=== PATIENT | female | born 1970 | race African-American/Black ===

== ENCOUNTER 2021-03-04 07:32 | Outpatient (REF) | payer BC, SELFPAY ==
--- NOTE | ~2021-03-04 | MM_ITS ---
EXAMINATION: MM SCREENING DIGITAL BREAST TOMOSYNTHESIS, BILATERAL CLINICAL INFORMATION: Screening. Asymptomatic. The lifetime risk of breast cancer based on the Tyrer-Cuzick Model is 8%. COMPARISON: Mammography: 06/23/2019, 06/07/2018, 06/04/2017 TECHNIQUE: Digital breast tomosynthesis is performed in both the craniocaudal and mediolateral oblique views along with computer-aided detection (CAD). Synthesized 2D images are generated from the tomosynthesis. Additional exaggerated right CC view is provided. FINDINGS: There are scattered areas of fibroglandular density (ACR BI-RADS breast composition Category b). There are no significant masses, abnormal calcifications, or other abnormalities. The axilla and skin contours are unremarkable. No significant changes. MM/MM tomosynthesis screening BI IMPRESSION: No mammographic evidence of malignancy. ASSESSMENT: BI-RADS 1: Negative RECOMMENDATION: Routine annual mammography screening. This patient's information was entered into a reminder system with a target due date for their next mammogram.
--- NOTE | ~2021-03-04 | US_ITS ---
EXAMINATION: US THYROID CLINICAL INFORMATION: Nontoxic multinodular goiter. History of left thyroidectomy. COMPARISON: Thyroid ultrasound 03/23/2019. CT soft tissue neck 04/30/2016. TECHNIQUE: Linear transducer martínez-scale and color Doppler examination with attention to the region of the thyroid. FINDINGS: SIZE: Measurements of the solitary right lobe and nodules are given in sagittal, anteroposterior and transverse dimensions respectively. Right Thyroid Lobe: 5.9 x 2 x 3.6 cm, volume 22.2 mL. Previously 5 x 2.6 x 3.6 cm, volume 24.5 mL. Parenchyma: The gland echotexture is heterogeneous. Thyroid vascularity is increased. Left Thyroid Lobe: Surgically absent. Isthmus: 0.4 cm in maximum AP dimension. Previously 0.3 cm. Estimated total number of nodules greater than or equal to 1 cm: 4. Marketing Automation Analyst nodules are described as follows: 1. Location: Right upper pole. Size: 1.9 x 0.9 x 1.2 cm, volume 1.1 mL. Previously: Not measured. Nodule characteristics: Composition: Solid/almost completely solid (2). Echogenicity: Isoechoic (1). Shape: Not taller than wide (0). Margins: Ill-defined (0). Echogenic Foci: None (0). ACR TI-RADS total points: 3 ACR TI-RADS category: 3 2. Location: Right mid pole/lateral. Size: 2.8 x 1.8 x 2.2 cm, volume 5.8 mL. Previously: 2.7 x 1.9 x 2.1 cm, volume 5.6 mL. Nodule characteristics: Composition: Mixed cystic and solid (1). Echogenicity: Hypoechoic (2). Shape: Not taller than wide (0). Margins: Ill-defined (0). Echogenic Foci: None (0). ACR TI-RADS total points: 3 ACR TI-RADS category: 3 Significant change in size (>/= 20% in 2 dimensions and minimal increase of 2 mm or 50% or greater increase in volume): No Change in features: No Change in ACR TI-RADS risk category: No 3. Location: Right mid pole/medial. Size: 1.4 x 0.9 x 1.0 cm, volume 0.66 mL. Previously: 1.2 x 0.9 x 1.0 cm, volume 0.56 mL. Nodule characteristics: Composition: Solid (2). Echogenicity: Isoechoic (1). Shape: Not taller than wide (0). Margins: Smooth (0). Echogenic Foci: None (0). ACR TI-RADS total points: 3 ACR TI-RADS category: 3 Significant change in size (>/= 20% in 2 dimensions and minimal increase of 2 mm or 50% or greater increase in volume): No Change in features: No Change in ACR TI-RADS risk category: No 4. Location: Right lower pole. Size: 1.6 x 1.2 x 2.2 cm, volume 2.2 mL. Previously: 1.9 x 1.5 x 2.2 cm, volume 2.3 mL. Nodule characteristics: Composition: Mixed cystic and solid (1). Echogenicity: Hyperechoic (1). Shape: Not taller than wide (0). Margins: Cannot be determined (0). Echogenic Foci: None (0). ACR TI-RADS total points: 2 ACR TI-RADS category: 2 Significant change in size (>/= 20% in 2 dimensions and minimal increase of 2 mm or 50% or greater increase in volume): No Change in features: No Change in ACR TI-RADS risk category: No LEFT THYROIDECTOMY BED: No recurrent thyroid tissue or nodule seen. NODES: No lymphadenopathy is seen in the tissue surrounding the thyroid gland. US/US thyroid IMPRESSION: Enlarged heterogeneous right lobe. Newly appreciated nodule in the superior lobe. Otherwise right thyroid nodules that appear unchanged. ACR TI-RADS RECOMMENDATION REFERENCE: Ultrasound-guided fine-needle aspiration, followup ultrasound, no further follow up. * TR1 (0 point) and TR 2 (2 points): No FNA or follow up * TR3 (3 points): FNA if more than or equal to 2.5 cm in maximum dimension, followup ultrasound in 1, 3 and 5 years if 1.5 to 2.4 cm in maximum dimension. * TR4 (4-6 points): FNA if more than or equal to 1.5 cm in maximum dimension, followup ultrasound in 1, 2, 3 and 5 years if 1 to 1.4 cm in maximum dimension. * TR5 (more than or equal to 7 points): FNA if more than or equal to 1 cm in maximum dimension, followup ultrasound every year for 5 years if 0.5 to 0.9 cm in maximum dimension. * TR3, TR4 or TR5 nodules that are below the size threshold for follow up receive no follow up.
[2021-03-04 09:58] LABS: Alanine Aminotransferase 15 U/L (0-31); Albumin Level 4.2 g/dL (3.5-5.0); Alkaline Phosphatase 85 U/L (39-117); Anion Gap 12 (12-20); Aspartate Amino Transferase 18 U/L (5-31); Bilirubin Total 0.9 mg/dL (0.0-1.0); Blood Urea Nitrogen 13 mg/dL (9-16); Calcium 9.3 mg/dL (8.4-10.2); Carbon Dioxide 26 mmol/L (22-29); Chloride 108 mmol/L (96-108); Estimated Glomerular Filt Rate > 60; Glucose Fasting 89 mg/dL (60-99); Potassium 4.4 mmol/L (3.3-5.1); Sodium 142 mmol/L (135-145); Total Protein 7.1 g/dL (6.5-8.0)
[2021-03-04 10:21] LABS: Free T4 (Free Thyroxine) 0.98 ng/dL (0.71-1.85); Thyroid Stimulating Hormone 1.03 uIU/mL (0.32-4.0); Vitamin D 25-OH Total 30.2 ng/mL (>30)
[2021-03-09 13:37] LABS: IGF-1 (Somatomedin C) 232 ng/mL (50-317); IGF-1 Z Score (Female) 1.1 SD (-2.0 - +2.0)
== END 2021-03-04 07:33 | disposition home or self-care (01) ==
LOC: HO.MAMMO 07:32
PROVIDERS: Absent Provider Internal Medicine; PCP Internal Medicine; Visit Provider Internal Medicine
DX: Z12.31 Encounter for screening mammogram for malignant neoplasm of breast (principal); E55.9 Vitamin D deficiency, unspecified; E04.2 Nontoxic multinodular goiter; Z86.39 Personal history of other endocrine, nutritional and metabolic disease
CPT/HCPCS: 36415; 76536; 77063; 77067; 80053; 82306; 84305; 84439; 84443

== ENCOUNTER 2021-03-18 08:17 | Outpatient (REF) | payer BC, SELFPAY ==
[2021-03-18 09:28] LABS: MANUAL DIFF FLAG NO
[2021-03-18 09:33] LABS: Basophils Percent Auto 0.5 % (0-2); Eosinophils Absolute Auto 0.1 X10*3/uL (0.0-0.4); Eosinophils Percent Auto 2.2 % (0-4); Hematocrit 40.3 % (37-47); Hemoglobin 12.3 g/dl (12.0-16.0); Imm Gran Abs Auto 0.01 X10*3/uL (0.00-0.03); Imm Gran Pct Auto 0.2 % (0.0-0.4); Lymphocytes Absolute Auto 1.9 X10*3/uL (1.2-4.9); Lymphocytes Percent Auto 46.4 % (20-40); Mean Corpuscular HGB Conc 30.5 g/dl (31.0-35.0); Mean Corpuscular Hemoglobin 26.7 pg (27.0-33.0); Mean Corpuscular Volume 87.6 fL (80-98); Mean Platelet Volume 10.2 fL (9.4-12.3); Monocytes Absolute Auto 0.3 X10*3/uL (0.1-1.2); Monocytes Percent Auto 6.7 % (2-11); Neutrophils Absolute Auto 1.8 X10*3/uL (2.0-8.3); Platelet Count 239 X10*3/uL (160-400); Red Cell Distribution Width 12.7 % (11.0-16.0)
[2021-03-18 09:54] LABS: Glucose Urine UA NEG (NEG); Leukocyte Esterase Urine NEG (NEG); Nitrite Urine NEG (NEG); PH 6.5 (5.0-8.0); Urine Blood NEG (NEG); Urine Ketones NEG (NEG); Urine Protein NEG (NEG-TRACE)
[2021-03-18 09:56] LABS: Appearance Urine CLEAR; Color Urine YELLOW
[2021-03-18 10:04] LABS: Cholesterol 237 mg/dL; HDL Cholesterol 64 mg/dL; LDL Cholesterol Calculated 156 mg/dl; Triglycerides 87 mg/dL
[2021-03-20 22:41] LABS: HPV mRNA E6/E7 rflx Not Detected (Not Detected)
== END 2021-03-18 08:18 | disposition home or self-care (01) ==
LOC: HO.LAB 08:17
PROVIDERS: Obstetrics & Gynecology; PCP Internal Medicine; Visit Provider Internal Medicine
DX: Z01.419 Encounter for gynecological examination (general) (routine) without abnormal findings (principal); Z11.51 Encounter for screening for human papillomavirus (HPV); E78.00 Pure hypercholesterolemia, unspecified; I10 Essential (primary) hypertension
CPT/HCPCS: 36415; 80061; 81003; 85025; 87624; 88142

== ENCOUNTER 2022-01-02 09:46 | Outpatient (REF) | payer BC, SELFPAY ==
--- NOTE | ~2022-01-02 | MM_ITS ---
EXAMINATION: BONE DENSITOMETRY CLINICAL INDICATION: Osteopenia. COMPARISON: Previous BD dated 10/31/2019 and baseline BD dated 09/30/2017. TECHNIQUE: Using a [employer] DXA System (software version: 13.1) manufactured by [employer], dual-energy x-ray absorptiometry was performed of the lumbar spine and left hip. The images are of good technical quality. Summary results are attached. FINDINGS: AP SPINE L1-L4: Current: BMD 1.167 g/cm2, Z-score -0.5, T-score -0.1, normal, 3.3% increase from previous, 2.0% increase from baseline (<5% change is not significant). Prior: BMD 1.130 g/cm2. Baseline: BMD 1.144 g/cm2. LEFT FEMUR, NECK: Current: BMD 0.842 g/cm2, Z-score -1.6, T-score -1.4, osteopenia. Prior: BMD 0.897 g/cm2. Baseline: BMD 0.888 g/cm2. LEFT FEMUR, TOTAL: Current: BMD 0.792 g/cm2, Z-score -2.3, T-score -1.7, osteopenia, 7.9% decrease from previous, 4.3% decrease from baseline (<5% change is not significant). Prior: BMD 0.860 g/cm2. Baseline: BMD 0.828 g/cm2. IDENTIFIED RISK FACTORS: Low calcium intake. Secondary osteoporosis (early menopause). Osteoporosis. HISTORY OF FRACTURE: None listed. MEDICATIONS: Calcium supplement and/or multivitamin. Vitamin D. MM/XR DEXA axial skeleton IMPRESSION: 1. DIAGNOSIS: Osteopenia based on the lowest T-score value of -1.7 in the total femur applying World Health Organization criteria. 2. 10-YEAR FRACTURE RISK PREDICTION, FRAX: Major osteoporotic fracture (clinical spine, forearm, hip or shoulder) 2.6%. Hip fracture 0.2%. 3. Treatment Recommendations: NOF guidelines recommend consideration for treatment in postmenopausal women and men age 50 and older presenting with the following: -A hip or vertebral (clinical or morphometric) fracture. -T-score less than or equal to -2.5 at the femoral neck or spine after appropriate evaluation to exclude secondary causes. -Low bone mass at the hip or spine and a 10-year fracture probability by FRAX of greater than or equal to 3% for hip fracture or greater than or equal to 20% for major osteoporotic fracture based on the [place] adapted WHO algorithm. 4. Other Recommendations: All treatment decisions require clinical judgment and consideration of individual patient factors, including patient preferences, comorbidities, previous drug use, risk factors not captured in the FRAX model (e.g. frailty, falls, vitamin D deficiency, increased bone turnover, interval significant decline in bone density) and possible under or overestimation of fracture risk by FRAX. Additional medical evaluation for secondary cause of low bone mineral density may be appropriate. FUTURE SCAN RECOMMENDATION: People with diagnosed cases of osteoporosis or at high risk for fracture should have regular bone mineral density tests. For patients eligible for Medicare, routine testing is allowed once every 2 years. The testing frequency can be increased to one year for patients who have rapidly progressing disease, those who are receiving or discontinuing medical therapy to restore bone mass, or have additional risk factors.
== END 2022-01-02 09:47 | disposition home or self-care (01) ==
LOC: HO.MAMMO 09:46
PROVIDERS: PCP Internal Medicine; Visit Provider Internal Medicine
DX: Z13.820 Encounter for screening for osteoporosis (principal); M85.852 Other specified disorders of bone density and structure, left thigh; Z78.0 Asymptomatic menopausal state; Z79.899 Other long term (current) drug therapy
CPT/HCPCS: 77080

== ENCOUNTER 2022-03-05 07:11 | Outpatient (REF) | payer BC, SELFPAY ==
[2022-03-05 07:31] LABS: MANUAL DIFF FLAG NO
[2022-03-05 08:04] LABS: Basophils Percent Auto 0.7 % (0-2); Eosinophils Absolute Auto 0.1 X10*3/uL (0.0-0.4); Eosinophils Percent Auto 2.1 % (0-4); Hematocrit 38.7 % (37.0-47.0); Hemoglobin 11.9 g/dl (12.0-16.0); Imm Gran Abs Auto 0.01 X10*3/uL (0.00-0.03); Imm Gran Pct Auto 0.2 % (0.0-0.4); Lymphocytes Absolute Auto 2.1 X10*3/uL (1.2-4.9); Lymphocytes Percent Auto 48.9 % (20-40); Mean Corpuscular HGB Conc 30.7 g/dl (31.0-35.0); Mean Corpuscular Hemoglobin 26.7 pg (27.0-33.0); Mean Corpuscular Volume 86.8 fL (80.0-98.0); Monocytes Absolute Auto 0.3 X10*3/uL (0.1-1.2); Monocytes Percent Auto 7.6 % (2-11); Neutrophils Absolute Auto 1.8 x10*3/uL (2.0-8.3); Neutrophils Percent Auto 40.5 % (45-73); Platelet Count 228 X10*3/uL (160-400); Red Blood Count 4.46 X10*6/uL (4.20-5.50); Red Cell Distribution Width 12.6 % (11.0-16.0); White Blood Count 4.4 X10*3/uL (4.8-10.8)
[2022-03-05 08:07] LABS: Appearance Urine CLOUDY; Color Urine YELLOW; Glucose Urine UA NEG (NEG); Leukocyte Esterase Urine 3+ (NEG); Nitrite Urine POS (NEG); Specific Gravity - Urine 1.015 (1.005-1.025); UACC Culture Trigger YES; Urine Blood TRACE (NEG); Urine Ketones NEG (NEG); Urine Protein NEG (NEG-TRACE)
[2022-03-05 08:20] LABS: Squamous Epithelial Cell Urine 1+ /LPF; WBC Urine TNTC /HPF (0-4)
[2022-03-05 08:21] LABS: Bacteria Urine 2+ /LPF
[2022-03-05 08:43] LABS: Alanine Aminotransferase 20 U/L (0-31); Albumin Level 4.2 g/dL (3.5-5.0); Alkaline Phosphatase 75 U/L (39-117); Anion Gap 9 (12-20); Aspartate Amino Transferase 19 U/L (5-31); Blood Urea Nitrogen 12 mg/dL (9-16); Calcium 9.6 mg/dL (8.4-10.2); Carbon Dioxide 28 mmol/L (22-29); Chloride 106 mmol/L (96-108); Cholesterol 221 mg/dL; Estimated Glomerular Filt Rate > 60; Glucose Fasting 94 mg/dL (60-99); HDL Cholesterol 59 mg/dL; LDL Cholesterol Calculated 144 mg/dl; Potassium 4.1 mmol/L (3.3-5.1); Sodium 139 mmol/L (135-145); Triglycerides 92 mg/dL
[2022-03-05 09:04] LABS: Thyroid Stimulating Hormone 1.97 uIU/mL (0.32-4.0); Vitamin D 25-OH Total 27.6 ng/mL (>30)
== END 2022-03-05 07:12 | disposition home or self-care (01) ==
LOC: HO.LAB 07:11
PROVIDERS: PCP Internal Medicine; Visit Provider Internal Medicine
DX: Z00.00 Encounter for general adult medical examination without abnormal findings (principal); E78.00 Pure hypercholesterolemia, unspecified; E55.9 Vitamin D deficiency, unspecified; I10 Essential (primary) hypertension; E03.9 Hypothyroidism, unspecified
CPT/HCPCS: 36415; 80053; 80061; 81001; 81003; 82306; 84439; 84443; 85025; 87086; 87088; 87186

== ENCOUNTER 2022-03-23 07:43 | Outpatient (REF) | payer BC, SELFPAY ==
[2022-03-23 08:52] LABS: Appearance Urine CLEAR; Color Urine YELLOW; Glucose Urine UA NEG (NEG); Leukocyte Esterase Urine NEG (NEG); Nitrite Urine NEG (NEG); Urine Blood NEG (NEG); Urine Ketones NEG (NEG); Urine Protein NEG (NEG-TRACE)
== END 2022-03-23 07:44 | disposition home or self-care (01) ==
LOC: HO.LAB 07:43
PROVIDERS: PCP Internal Medicine; Visit Provider Internal Medicine
DX: Z01.419 Encounter for gynecological examination (general) (routine) without abnormal findings (principal); N39.0 Urinary tract infection, site not specified
CPT/HCPCS: 81003

== ENCOUNTER 2022-03-27 07:59 | Outpatient (REF) | payer BC, SELFPAY ==
--- NOTE | ~2022-03-27 | MM_ITS ---
EXAMINATION: MM SCREENING DIGITAL BREAST TOMOSYNTHESIS, BILATERAL CLINICAL INFORMATION: Screening. Asymptomatic. The lifetime risk of breast cancer based on the Tyrer-Cuzick Model is 8%. COMPARISON: Mammography: 03/04/2021, 06/23/2019, 06/07/2018 TECHNIQUE: Digital breast tomosynthesis is performed in both the craniocaudal and mediolateral oblique views along with computer-aided detection (CAD). Synthesized 2D images are generated from the tomosynthesis. FINDINGS: There are scattered areas of fibroglandular density (ACR BI-RADS breast composition Category b). There are no significant masses, abnormal calcifications, or other abnormalities. The axilla and skin contours are unremarkable. No developing density. No significant changes. MM/MM tomosynthesis screening BI IMPRESSION: No mammographic evidence of malignancy. ASSESSMENT: BI-RADS 1: Negative RECOMMENDATION: Routine annual mammography screening. This patient's information was entered into a reminder system with a target due date for their next mammogram.
== END 2022-03-27 08:00 | disposition home or self-care (01) ==
LOC: HO.MAMMO 07:59
PROVIDERS: PCP Internal Medicine; Visit Provider Obstetrics & Gynecology
DX: Z12.31 Encounter for screening mammogram for malignant neoplasm of breast (principal)
CPT/HCPCS: 77063; 77067

== ENCOUNTER 2022-06-24 15:25 | Outpatient (REF) | payer BC, SELFPAY ==
--- NOTE | ~2022-06-24 | US_ITS ---
EXAMINATION: US THYROID CLINICAL INFORMATION: Goiter. COMPARISON: Ultrasound soft tissue head/neck thyroid dated 03/04/2021 and 03/23/2019. CT neck 04/30/2016.. TECHNIQUE: Linear transducer grayscale and color Doppler examination with attention to the region of the thyroid. FINDINGS: SIZE: Measurements of the solitary right thyroid lobe and nodules are given in sagittal, anteroposterior and transverse dimensions respectively. Right Thyroid Lobe: 6.7 x 2.4 x 2.6 cm, volume 22.5 mL. Previously 5.9 x 2.0 x 3.6 cm, volume 22.2 mL. Parenchyma: The gland echotexture is heterogeneous. Thyroid vascularity is increased. Left Thyroid Lobe: Surgically absent. Isthmus: 0.43 cm in maximum AP dimension. Previously 0.39 cm. Estimated total number of nodules greater than or equal to 1 cm: 4. Sales Engineering Manager nodules are described as follows: 1. Location: Right superior. Size: 3.3 x 2.0 x 2.2 cm, volume 7.43 mL. Previously: 1.9 x 0.95 x 1.2 cm, volume 1.1 mL. Nodule characteristics: Composition: Solid/almost completely solid (2). Echogenicity: Hypoechoic (2). Shape: Not taller than wide (0). Margins: Smooth (0). Echogenic Foci: Punctate echogenic foci (3). ACR TI-RADS total points: 7. Previous: 3. ACR TI-RADS category: 5. Previous: 3. Significant change in size (>/= 20% in 2 dimensions and minimal increase of 2 mm or 50% or greater increase in volume): There is moderate increase in volume. Change in features: Heterogeneous. Change in ACR TI-RADS risk category: Increased number from 3 to 5. 2. Location: Right mid. Size: 2.9 x 1.9 x 2.4 cm, volume 7.16 mL. Previously: 2.8 x 1.8 x 2.2 cm, volume 5.8 mL. Nodule characteristics: Composition: Solid/almost completely solid (2). Echogenicity: Isoechoic (1). Shape: Not taller than wide (0). Margins: Smooth (0). Echogenic Foci: Punctate echogenic foci (3). ACR TI-RADS total points: 6. Previous: 3. ACR TI-RADS category: 4. Previous: 3. Significant change in size (>/= 20% in 2 dimensions and minimal increase of 2 mm or 50% or greater increase in volume): No change. Change in features: No change. Change in ACR TI-RADS risk category: Increased minimal increase in number from 3 to 4. 3. Location: Right inferior. Size: 1.9 x 1.3 x 1.8 cm, volume 2.3 mL. Previously: 1.6 x 1.2 x 2.2 cm, volume 2.2 mL. Nodule characteristics: Composition: Mixed cystic and solid (1). Echogenicity: Isoechoic (1). Shape: Not taller than wide (0). Margins: Smooth (0). Echogenic Foci: Punctate echogenic foci (3). ACR TI-RADS total points: 5. Previous: 2. ACR TI-RADS category: 4. Previous: 2. Significant change in size (>/= 20% in 2 dimensions and minimal increase of 2 mm or 50% or greater increase in volume): No major change. Change in features: No change. Change in ACR TI-RADS risk category: Increase in the category from 2 to 4. 4. Location: Right isthmus. Size: 1.2 x 1.3 x 0.9 cm, volume 0.73 mL. Previously: 1.4 x 0.93 x 1.0 cm, volume 0.66 mL. Nodule characteristics: Composition: Solid (2). Echogenicity: Isoechoic (1). Shape: Taller than wide (3). Margins: Smooth (0). Echogenic Foci: None (0). ACR TI-RADS total points: 6. Previous: 3. ACR TI-RADS category: 4. Previous: 3. Significant change in size (>/= 20% in 2 dimensions and minimal increase of 2 mm or 50% or greater increase in volume): None. Change in features: None. Change in ACR TI-RADS risk category: Minimal change in the category from 3 to 4. NODES: No lymphadenopathy is seen in the tissue surrounding the thyroid gland. US/US thyroid IMPRESSION: Multiple thyroid nodules. The right upper /midpole nodules have increased in size and TI-RADS category. Continued follow-up recommended. Left lobe has been surgically removed. ACR TI-RADS RECOMMENDATION REFERENCE: Ultrasound-guided fine-needle aspiration, followup ultrasound, no further follow up. * TR1 (0 point) and TR 2 (2 points): No FNA or follow up * TR3 (3 points): FNA if more than or equal to 2.5 cm in maximum dimension, followup ultrasound in 1, 3 and 5 years if 1.5 to 2.4 cm in maximum dimension. * TR4 (4-6 points): FNA if more than or equal to 1.5 cm in maximum dimension, followup ultrasound in 1, 2, 3 and 5 years if 1 to 1.4 cm in maximum dimension. * TR5 (more than or equal to 7 points): FNA if more than or equal to 1 cm in maximum dimension, followup ultrasound every year for 5 years if 0.5 to 0.9 cm in maximum dimension. * TR3, TR4 or TR5 nodules that are below the size threshold for follow up receive no follow up.
== END 2022-06-24 15:26 | disposition home or self-care (01) ==
LOC: HO.HMGCX 15:25
PROVIDERS: PCP Internal Medicine; Visit Provider Internal Medicine
DX: E04.2 Nontoxic multinodular goiter (principal)
CPT/HCPCS: 76536

== ENCOUNTER 2022-09-09 09:19 | Outpatient (REF) | payer BC, SELFPAY ==
[2022-09-09 13:25] LABS: Alanine Aminotransferase 15 U/L (0-31); Albumin Level 4.3 g/dL (3.5-5.0); Alkaline Phosphatase 77 U/L (39-117); Anion Gap 13 (12-20); Aspartate Amino Transferase 17 U/L (5-31); Bilirubin Total 1.1 mg/dL (0.0-1.0); Blood Urea Nitrogen 10 mg/dL (9-16); Calcium 9.5 mg/dL (8.4-10.2); Carbon Dioxide 25 mmol/L (22-29); Chloride 106 mmol/L (96-108); Cholesterol 219 mg/dL; Estimated Glomerular Filt Rate > 60; Glucose Fasting 94 mg/dL (60-99); HDL Cholesterol 60 mg/dL; LDL Cholesterol Calculated 143 mg/dl; Potassium 3.9 mmol/L (3.3-5.1); Sodium 140 mmol/L (135-145); Total Protein 7.2 g/dL (6.5-8.0); Triglycerides 84 mg/dL; Vitamin D 25-OH Total 44.3 ng/mL (>30)
== END 2022-09-09 09:20 | disposition home or self-care (01) ==
LOC: HO.HMGCLDS 09:19
PROVIDERS: PCP Internal Medicine; Visit Provider Internal Medicine
DX: E78.00 Pure hypercholesterolemia, unspecified (principal); E55.9 Vitamin D deficiency, unspecified
CPT/HCPCS: 36415; 80053; 80061; 82306

== ENCOUNTER 2023-03-10 07:40 | Outpatient (REF) | payer BC, SELFPAY ==
[2023-03-10 11:16] LABS: MANUAL DIFF FLAG NO
[2023-03-10 11:17] LABS: Appearance Urine Cloudy; Color Urine Yellow; Glucose Urine UA Negative (Negative); Leukocyte Esterase Urine Trace (Negative); Nitrite Urine Positive (Negative); Specific Gravity - Urine 1.015 (1.005-1.025); UMIC TRIGGER UACC YES; Urine Blood Negative (Negative); Urine Ketones Negative (Negative); Urine Protein Negative (Neg-Trace)
[2023-03-10 11:21] LABS: Bacteria Urine 2+ (None Seen); Hyaline Casts Urine 0-2 /LPF (0-2); RBC Urine 0-2 /HPF (0-2); UACC Culture Trigger YES
[2023-03-10 11:35] LABS: Basophils Percent Auto 0.7 % (0-2); Eosinophils Absolute Auto 0.1 X10*3/uL (0.0-0.4); Hematocrit 38.3 % (37.0-47.0); Hemoglobin 11.8 g/dl (12.0-16.0); Lymphocytes Absolute Auto 2.3 X10*3/uL (1.2-4.9); Lymphocytes Percent Auto 51.8 % (20-40); Mean Corpuscular HGB Conc 30.8 g/dl (31.0-35.0); Mean Corpuscular Hemoglobin 26.9 pg (27.0-33.0); Mean Corpuscular Volume 87.2 fL (80.0-98.0); Mean Platelet Volume 11.9 fL (9.4-12.3); Monocytes Absolute Auto 0.3 X10*3/uL (0.1-1.2); Monocytes Percent Auto 6.1 % (2-11); Neutrophils Absolute Auto 1.7 x10*3/uL (2.0-8.3); Neutrophils Percent Auto 39.4 % (45-73); Platelet Count 229 X10*3/uL (160-400); Red Blood Count 4.39 X10*6/uL (4.20-5.50); White Blood Count 4.4 X10*3/uL (4.8-10.8)
[2023-03-10 12:41] LABS: Alanine Aminotransferase 17 U/L (0-31); Albumin Level 4.1 g/dL (3.5-5.0); Alkaline Phosphatase 80 U/L (39-117); Anion Gap 10 (12-20); Aspartate Amino Transferase 17 U/L (5-31); Bilirubin Total 1.4 mg/dL (0.0-1.0); Blood Urea Nitrogen 12 mg/dL (9-16); Calcium 9.5 mg/dL (8.4-10.2); Carbon Dioxide 27 mmol/L (22-29); Chloride 109 mmol/L (96-108); Cholesterol 220 mg/dL; Estimated Glomerular Filt Rate > 60; Glucose Fasting 89 mg/dL (60-99); HDL Cholesterol 59 mg/dL; LDL Cholesterol Calculated 145 mg/dl; Potassium 4.1 mmol/L (3.3-5.1); Sodium 142 mmol/L (135-145); Triglycerides 82 mg/dL
[2023-03-10 12:47] LABS: Free T4 (Free Thyroxine) 0.93 ng/dL (0.71-1.85); Thyroid Stimulating Hormone 1.93 uIU/mL (0.32-4.0); Vitamin D 25-OH Total 49.2 ng/mL (>30)
== END 2023-03-10 07:41 | disposition home or self-care (01) ==
LOC: HO.HMGCLDS 07:40
PROVIDERS: PCP Internal Medicine; Visit Provider Internal Medicine
DX: I10 Essential (primary) hypertension (principal); E04.9 Nontoxic goiter, unspecified; E78.00 Pure hypercholesterolemia, unspecified; E55.9 Vitamin D deficiency, unspecified; R30.0 Dysuria
CPT/HCPCS: 36415; 80053; 80061; 81001; 82306; 84439; 84443; 85025; 87086

== ENCOUNTER → 2023-03-25 09:09 | Outpatient (BNVA) | payer BC, SELFPAY | PROVIDERS: PCP Internal Medicine; Visit Provider Obstetrics & Gynecology ==

== ENCOUNTER 2023-03-29 07:35 | Outpatient (REF) | payer BC, SELFPAY ==
--- NOTE | ~2023-03-29 | MM_ITS ---
EXAMINATION: MM SCREENING DIGITAL BREAST TOMOSYNTHESIS, BILATERAL CLINICAL INFORMATION: Screening. Asymptomatic. The lifetime risk of breast cancer based on the Tyrer-Cuzick Model is 7%. COMPARISON: Mammography: 03/27/2022, 03/04/2021, 06/23/2019 TECHNIQUE: Digital breast tomosynthesis is performed in both the craniocaudal and mediolateral oblique views along with computer-aided detection (CAD). Synthesized 2D images are generated from the tomosynthesis. FINDINGS: There are scattered areas of fibroglandular density (ACR BI-RADS breast composition Category b). There are no significant masses, abnormal calcifications, or other abnormalities. Parenchymal pattern is similar to prior studies. There is no developing density or architectural abnormality. The axilla and skin contours are unremarkable. No significant changes. MM/MM tomosynthesis screening BI IMPRESSION: No mammographic evidence of malignancy. ASSESSMENT: BI-RADS 1: Negative RECOMMENDATION: Routine annual mammography screening. This patient's information was entered into a reminder system with a target due date for their next mammogram.
== END 2023-03-29 07:36 | disposition home or self-care (01) ==
LOC: HO.MAMMO 07:35
PROVIDERS: PCP Internal Medicine; Visit Provider Internal Medicine
DX: Z12.31 Encounter for screening mammogram for malignant neoplasm of breast (principal)
CPT/HCPCS: 77063; 77067

== ENCOUNTER → 2023-04-05 07:56 | Outpatient (REF) | payer BC, SELFPAY ==
--- NOTE | 2023-04-05 07:58 | CA_ITS ---
Transthoracic Echocardiogram Patient (Last, First, Middle): Sahra Duggan W Gender: Female Date of : 1970 Age: 52 Procedure Date: 04/05/2023 Procedure Type: Transthoracic Echocardiogram Location: OP Height: 167.64 cm Weight: 77.11 kg BSA: 1.87 m2 Heart Rate: bpm BP: 144 / 92 mmHg Paper Tester: GALLITO Referring MD: Timbo Cardona MD Symptoms: R01.1 - Cardiac murmur, unspecified Study Quality: Adequate ECG Rhythm: Sinus Conclusions: - The left ventricular systolic function is normal. The calculated ejection fraction is 68% by biplane method. - No obvious valvular pathology seen on this study. Findings Left Ventricle Normal left ventricular cavity size. There is normal left ventricular wall thickness. The left ventricular systolic function is normal. The calculated ejection fraction is 68% by biplane method. There is no evidence of regional wall motion abnormalities. Diastolic function is normal for age. LV peak GLS -18.6%. Right Ventricle Normal right ventricular cavity size and systolic function. Atria Both atria are normal in size. Aortic Valve There is a normal trileaflet aortic valve. There is no aortic valve stenosis. There is no aortic valve regurgitation. Mitral Valve The mitral valve appears normal. There is trace mitral valve regurgitation. There is no mitral valve stenosis. Pulmonic Valve The pulmonic valve is likely normal. Tricuspid Valve There is mild tricuspid valve regurgitation. There is no evidence of pulmonary hypertension. Great Vessels The asc aorta is normal in size. Venous The inferior vena cava is normal in size and collapses greater than 50% with inspiration. Pericardium/Pleural There is no evidence of pericardial effusion. Prior Study Comparison No prior study available for comparison. Recommendations, Care & Conclusions No obvious valvular pathology seen on this study. Measurements 2D Linear Measurements IVSd: 0.94 0.6-0.9/0.6-1.0 cm LVIDd: 4.60 3.9-5.3/4.2-5.9 cm LVIDd Index: 2.46 2.4-3.2/2.2-3.1 cm/m2 LVIDs: 2.89 2.0-3.6 cm LVPWd: 0.96 0.7-1.1 cm LA Diam: 2.00 2.7-3.8/3.0-4.0 cm LAIDs Index: 1.07 1.5-2.3 cm/m2 LV Mass: 184.38 67-162/88-224 g LV Mass Index: 98.60 43-95/49-115 g/m2 LVOT Diam: 2.20 3.0+(-)1.3 cm 2D Systolic Function EF 4C: 69.80 >55% EF 2C: 65.60 >55% EF BiP: 67.70 >55% Mitral Valve MV Pk E: 0.64 MV PK A: 0.66 MV Decel Time: 242.00 E/A: 1.00 E'Lateral: 9.57 E'Medial: 6.64 E/E' Med: 9.70 E/E' Lat: 6.70 PHT: 71.00 MVA PHT: 3.10 Decel Nolan: 2.66 Aortic Valve AoV Pk Usman: 1.38 AoV Mn Usman: 0.98 AoV VTI: 0.32 AoV Pk Grad: 8.00 Aov Mn Grad: 4.00 KATHYA Cont.VTI: 3.11 LVOT LVOT Pk Usman: 1.25 LVOT Mn Usman: 0.75 LVOT VTI: 0.26 LVOT Pk Grad: 6.00 LVOT Mn Grad: 3.00 LVOT Diam: 2.20 LVOT Area: 3.80 Diastolic Function MV Pk E: 0.64 MV Pk A: 0.66 E/A: 1.00 E'Medial: 6.64 E/E' Med: 9.70 E' Laterial: 9.57 E/E' Lat: 6.70 Right Ventricle TAPSE (mm): 28.70 TVS' Usman: 14.10 Tricuspid Valve TR Pk Usman: 2.35 TR Pk Grad: 22.00 RA Press: 3.00 RVSP: 25.00 Great Vessels Aorta Sinus of Valsalva: 3.70 2.0-3.[address] Ridge: 3.12 1.7-3.4 cm Ao Asc: 3.30 2.1-3.4 cm Updated in Other Vendor System with Status of Final Marcus Irby MD electronically signed on 04/06/2023 11:06:14 AM with status of Final
== END ==
LOC: HO.CARD 07:56
PROVIDERS: PCP Internal Medicine; Visit Provider Internal Medicine
DX: R01.1 Cardiac murmur, unspecified (principal)
CPT/HCPCS: 93306; 93356

== ENCOUNTER → 2023-04-15 07:34 | Outpatient (BNVA) | payer BC, SELFPAY | PROVIDERS: PCP Internal Medicine; Visit Provider Physician Assistant ==

== ENCOUNTER 2023-05-06 15:36 | Outpatient (REF) | payer BC, SELFPAY ==
--- NOTE | ~2023-05-06 | US_ITS ---
EXAMINATION: US THYROID CLINICAL INFORMATION: Nontoxic multinodular goiter. Left thyroidectomy. COMPARISON: Thyroid ultrasound 06/24/2022 and 03/04/2021. CT soft tissue neck 04/30/2016. TECHNIQUE: Linear transducer grayscale and color Doppler examination with attention to the region of the thyroid. FINDINGS: SIZE: Measurements of the right lobe and nodules are given in sagittal, anteroposterior and transverse dimensions respectively. Right Thyroid Lobe: 5.6 x 1.9 x 3.2 cm, volume 17.8 mL. Previously 6.7 x 2.4 x 2.6 cm, volume 22.5 mL. Parenchyma: The gland echotexture is heterogeneous. Thyroid vascularity is increased. Left Thyroid Lobe: Surgically absent. Isthmus: 0.5 cm in maximum AP dimension. Previously 0.4 cm. Estimated total number of nodules greater than or equal to 1 cm: 4. Cotton Weigher nodules are described as follows: 1. Location: Right upper pole. Size: 2.2 x 1.7 x 2.0 cm, volume 3.86 mL. Previously: Unable to compare to prior. Nodule characteristics: Composition: Solid/almost completely solid (2). Echogenicity: Isoechoic (1). Shape: Not taller than wide (0). Margins: Smooth (0). Echogenic Foci: None (0). ACR TI-RADS total points: 3 ACR TI-RADS category: 3 2. Location: Right mid pole. Size: 3.6 x 2.0 x 2.7 cm, volume 10.1 mL. Previously: 2.9 x 1.9 x 2.4 cm, volume 7.16 mL. Nodule characteristics: Composition: Solid (2). Echogenicity: Hypoechoic (2). Shape: Not taller than wide (0). Margins: Smooth (0). Echogenic Foci: None (0). ACR TI-RADS total points: 4 Previous: 6 ACR TI-RADS category: 4 Previous: 4 Significant change in size (>/= 20% in 2 dimensions and minimal increase of 2 mm or 50% or greater increase in volume): No Change in features: Yes Change in ACR TI-RADS risk category: No 3. Location: Right lower pole. Size: 1.8 x 1.4 x 1.7 cm, volume 2.2 mL. Previously: 1.9 x 1.3 x 1.8 cm, volume 2.3 mL. Nodule characteristics: Composition: Solid (2). Echogenicity: Hypoechoic (2). Shape: Not taller than wide (0). Margins: Lobulated (2). Echogenic Foci: None (0). ACR TI-RADS total points: 6 Previous: 5 ACR TI-RADS category: 4 Previous: 4 Significant change in size (>/= 20% in 2 dimensions and minimal increase of 2 mm or 50% or greater increase in volume): No Change in features: Yes Change in ACR TI-RADS risk category: No 4. Location: Isthmus. Size: 1.4 x 1.1 x 1.1 cm, volume 0.9 mL. Previously: 1.2 x 1.3 x 0.9 cm, volume 0.7 mL. Nodule characteristics: Composition: Solid (2). Echogenicity: Hyperechoic (1). Shape: Not taller than wide (0). Margins: Smooth (0). Echogenic Foci: None (0). ACR TI-RADS total points: 3 Previous: 6 ACR TI-RADS category: 3 Previous: 4 Significant change in size (>/= 20% in 2 dimensions and minimal increase of 2 mm or 50% or greater increase in volume): No Change in features: Yes Change in ACR TI-RADS risk category: Yes LEFT THYROIDECTOMY BED: No abnormal mass or fluid collection is seen. NODES: No lymphadenopathy is seen in the tissue surrounding the thyroid gland. US/US thyroid IMPRESSION: 1. The left thyroid gland is surgically absent. No abnormal mass or fluid collection is seen within the former left thyroid bed. 2. A 3.6 cm in maximal diameter increased mid right thyroid lobe nodule meets ACR biopsy criteria and is amenable to ultrasound-guided biopsy, if clinically indicated and not already performed. 3. There is goitrous enlargement of the right thyroid lobe. 4. There is heterogeneous thyroid echotexture, which can be associated with thyroiditis. ACR TI-RADS RECOMMENDATION REFERENCE: Ultrasound-guided fine-needle aspiration, follow up ultrasound, no further followup. * TR1 (0 point) and TR2 (2 points): No FNA or followup * TR3 (3 points): FNA if more than or equal to 2.5 cm in maximum dimension, follow up ultrasound in 1, 3 and 5 years if 1.5 to 2.4 cm in maximum dimension. * TR4 (4-6 points): FNA if more than or equal to 1.5 cm in maximum dimension, follow up ultrasound in 1, 2, 3 and 5 years if 1 to 1.4 cm in maximum dimension. * TR5 (more than or equal to 7 points): FNA if more than or equal to 1 cm in maximum dimension, follow up ultrasound every year for 5 years if 0.5 to 0.9 cm in maximum dimension. * TR3, TR4 or TR5 nodules that are below the size threshold for follow up receive no followup.
[2023-05-13 15:18] LABS: IGF-1 (Somatomedin C) 248 ng/mL (50-317); IGF-1 Z Score (Female) 1.3 SD (-2.0 - +2.0)
== END 2023-05-06 15:37 | disposition home or self-care (01) ==
LOC: HO.US 15:36
PROVIDERS: PCP Internal Medicine; Visit Provider Internal Medicine Endocrinology, Diabetes & Metabolism
DX: E04.2 Nontoxic multinodular goiter (principal); E22.0 Acromegaly and pituitary gigantism
CPT/HCPCS: 36415; 76536; 84305

== ENCOUNTER 2023-05-11 15:53 | Outpatient (AMB) | payer BC, SELFPAY ==
[2023-05-11 15:54] VITALS: BP 138/86; PULSE 78; O2SAT 98; BMI 26.9
--- NOTE | 2023-05-11 15:54 | MHC.OFFVIS ---
Intake Vital Signs 05/11/23 15:54 Height 5 ft 7 in Weight 171 lb 8.314 oz BMI 26.9 BP 138/86 Blood Pressure Location Lt brachial Position Sitting Pulse 78 Pulse Source Pulse Oximeter Pulse Oximetry (%) 98 Oxygen Delivery Method Room Air Intake Visit Reasons: Acromegaly and pituitary gigantism Intake Note: Patient presents to the office today for acromegaly and pituitary gigantism. Allergies Sulfa (Sulfonamide Antibiotics) [SULFA (SULFONAMIDE ANTIBIOTICS)] Allergy (Unknown, Verified 05/11/23 15:57) RASH Medication List - Last Reconciled 05/11/23 by Jim King MD amlodipine 5 mg PO DAILY bisacodyl (Dulcolax (bisacodyl)) 20 mg (4 x 5 mg) PO ONCE 1 day cholecalciferol (vitamin D3) 25 mcg PO DAILY minoxidil 1.25 mg PO DAILY polyethylene glycol 3350 (Miralax) 238 grams PO ONCE 1 day HPI HPI Comments History of Present Illness Details This is a 53-year-old black female followed by myself previously for acromegaly status post transsphenoidal resection with persistent slightly elevated IGF-1 level but normal growth a month suppression test. She also has a goiter underwent left lobectomy. Right lobe had thyroid nodules well. One of the right lobe nodules have grown in size and FNA was discussed at last visit with Dr. Bethea . [facility] Medical History Acromegaly Benign essential hypertension Chronic leukopenia Goiter Osteopenia of neck of femur Overweight (BMI 25.0-29.9) Pure hypercholesterolemia Vitamin D deficiency Surgical History History of brain surgery (~2004) History of tubal ligation Hx of colonoscopy (~03/28/18) Hx of dilation and curettage (~2017) Family History Father Renal failure Hypertension Mother Hypertension Social History Housing: House Alcohol intake: never Patient Tobacco Use Status: Never used Tobacco e-Cigarette/Vaping Use: Never Used Second Hand Smoke Exposure: Yes service: No Current occupational status: employed Cognitive needs: No Hearing needs: No Vision needs: Yes (glasses) Female Reproductive History Menstrual Age of Menarche: 11 Physical Exam Vital Signs: Last Vital Signs Pulse 78 05/11/23 15:54 BP 138/86 05/11/23 15:54 Pulse Ox 98 05/11/23 15:54 Oxygen Delivery Method Room Air 05/11/23 15:54 BMI result Body Mass Index 26.9 Const Other: Acromegalic features present. There is a scar status post left lobectomy. Right lobe is without the presence of any palpable Assessment & Plan Assessment & Plan (1) Acromegaly: Code(s): 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 Plan: This is a 53-year-old black female with history of acromegaly status post transsphenoidal resection. IGF-1 is pending. Plan is to check IGF-1 when available in if slightly elevated will do glucose tolerance test with growth hormone levels (2) Goiter: Comment: S/P left thyroid lobectomy on 06/28/2017 Code(s): E04.9 - Nontoxic goiter, unspecified Plan: Will await thyroid ultrasound report. Further action we taking if the above including a possible FNA of the right nodules warranted Coding Level of Care Code Est Pt Level 3 (04223) Diagnoses Acromegaly E22.0 Goiter E04.9
== END 2023-05-11 16:19 | disposition home or self-care (01) ==
PROVIDERS: PCP Internal Medicine; Visit Provider Internal Medicine Endocrinology, Diabetes & Metabolism
DX: E22.0 Acromegaly and pituitary gigantism (principal); E04.9 Nontoxic goiter, unspecified
CPT/HCPCS: 99213

== ENCOUNTER → 2023-05-11 15:53 | Outpatient (BNVA) | payer BC, SELFPAY | PROVIDERS: PCP Internal Medicine; Visit Provider Internal Medicine Endocrinology, Diabetes & Metabolism ==

== ENCOUNTER 2023-06-14 14:20 | Outpatient (REF) | payer BC, SELFPAY ==
--- NOTE | ~2023-06-14 | US_ITS ---
EXAMINATION: Ultrasound-guided thyroid fine-needle aspiration CLINICAL INFORMATION: Right thyroid nodules COMPARISON: Previous thyroid ultrasound April 2023 TECHNIQUE: Procedure and risks and benefits including bleeding and infection were discussed with the patient and informed consent was obtained. Using ultrasound guidance and a 25-gauge needle, access to the 2.1 x 2.1 x 3 cm nodule in the mid right lobe was obtained. 4 25-gauge specimens were obtained. Subsequently, using ultrasound guidance and a 25-gauge needle, access to the 1.2 x 1.1 x 1.3 cm nodule in the superior right lobe was obtained. 4 25-gauge FNA specimens were obtained. FINDINGS: There is a 2.1 x 2.1 x 3 cm nodule in the right middle lobe and 1.2 x 1.1 x 1.3 cm nodule in the upper right lobe that were targeted for fine-needle aspiration. US/US guided fine needle asp IMPRESSION: Ultrasound-guided right thyroid fine-needle aspirations.
[2023-06-14] MEDS: Lidocaine HCl 1 % MPF 5 ML VIAL SUBCUT (15:34)
== END 2023-06-14 14:21 | disposition home or self-care (01) ==
LOC: HO.US 14:20
PROVIDERS: PCP Internal Medicine; Visit Provider Internal Medicine Endocrinology, Diabetes & Metabolism
DX: E04.9 Nontoxic goiter, unspecified (principal)
CPT/HCPCS: 10005; 88172; 88173; 88177; 88305

== ENCOUNTER → 2023-06-14 14:21 | Outpatient (BNV) | payer BC, SELFPAY | PROVIDERS: PCP Internal Medicine; Visit Provider Radiology Diagnostic Radiology | DX: E04.2 Nontoxic multinodular goiter (principal) | CPT/HCPCS: 10005; 10006 ==

== ENCOUNTER 2023-07-28 07:58 | Outpatient (AMB) | payer BC, SELFPAY ==
--- NOTE | 2023-07-28 08:01 | MHC.OFFVIS ---
Intake Vital Signs 07/28/23 08:02 Height 5 ft 7 in Weight 173 lb 8.061 oz BMI 27.2 BP 138/84 Blood Pressure Location Lt brachial Position Sitting Pulse 80 Pulse Source Pulse Oximeter Intake Visit Reasons: FNA Results Intake Note: Patient present today for FNA results follow up visit. Postal Sorting Officer Required: No Accompanied by: Self / Same As Patient Allergies Sulfa (Sulfonamide Antibiotics) [SULFA (SULFONAMIDE ANTIBIOTICS)] Allergy (Unknown, Verified 07/28/23 08:08) RASH HPI HPI Comments History of Present Illness Details This is a 53-year-old black female followed by myself previously for acromegaly status post transsphenoidal resection with persistent slightly elevated IGF-1 level but normal growth a month suppression test. She also has a goiter underwent left lobectomy. Right lobe had thyroid nodules well. One of the right lobe nodules have grown in size and FNA was discussed at last visit with Dr. Bethea . She is status post FNA with cytology A. Thyroid, right mid pole, fine needle aspiration: Benign ([place] category II). COMMENT: Review of the cytology preparation demonstrates a cellular specimen composed of groups of benign-appearing follicular cells, oncocytes/Hurthle cells and histiocytes, consistent with a benign follicular nodule. The cell block is acellular. B. Thyroid, right upper pole, fine needle aspiration: Non-diagnostic ([place] category I). COMMENT: The specimen is processed and examined, but non-diagnostic due to insufficient follicular cell cellularity. The cell block shows scant material. A repeat aspiration may be considered PFSH Medical History Acromegaly Benign essential hypertension Chronic leukopenia Goiter Osteopenia of neck of femur Overweight (BMI 25.0-29.9) Pure hypercholesterolemia Vitamin D deficiency Surgical History History of brain surgery (~2004) History of tubal ligation Hx of colonoscopy (~03/28/18) Hx of dilation and curettage (~2017) Family History Father Renal failure Hypertension Mother Hypertension Social History Housing: House Alcohol intake: never Patient Tobacco Use Status: Never used Tobacco e-Cigarette/Vaping Use: Never Used Second Hand Smoke Exposure: Yes service: No Current occupational status: employed Cognitive needs: No Hearing needs: No Vision needs: Yes (glasses) Female Reproductive History Menstrual Age of Menarche: 11 Physical Exam Const Other: Acromegalic features present. There is a scar status post left lobectomy. Right lobe is without the presence of any palpable Assessment & Plan Assessment & Plan (1) Acromegaly: Code(s): 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 Plan: This is a 53-year-old black female with history of acromegaly status post transsphenoidal resection. IGF-1 is normal at patient appears to not have active acromegaly (2) Goiter: Comment: S/P left thyroid lobectomy on 06/28/2017 Code(s): E04.9 - Nontoxic goiter, unspecified Plan: Status post FNA of right upper and midpole nodule with midpole nodule being benign and right upper pole nodule being non diagnostic Will discussed with patient options of either reaspiration of right upper pole nodule or observation or right lobectomy. After careful, conversation with the patient, we decided to get a 2nd opinion and will sent to Dr. Alatorre at [facility] in [place] will perform an ultrasound and decide whether to rebiopsy. Patient will follow-up after this Orders: Referrals Endocrinology Referral E04.9 - Nontoxic goiter, unspecified Coding Level of Care Code Est Pt Level 3 (25989) Diagnoses Acromegaly E22.0 Goiter E04.9
[2023-07-28 08:02] VITALS: BP 138/84; PULSE 80; BMI 27.2
== END 2023-07-28 08:23 | disposition home or self-care (01) ==
PROVIDERS: PCP Internal Medicine; Visit Provider Internal Medicine Endocrinology, Diabetes & Metabolism
DX: E22.0 Acromegaly and pituitary gigantism (principal); E04.9 Nontoxic goiter, unspecified
CPT/HCPCS: 99213

== ENCOUNTER → 2023-07-28 07:58 | Outpatient (BNVA) | payer BC, SELFPAY | PROVIDERS: PCP Internal Medicine; Visit Provider Internal Medicine Endocrinology, Diabetes & Metabolism ==

== ENCOUNTER 2023-07-29 08:04 | Outpatient (REF) | payer BC, SELFPAY | END 2023-07-29 08:05 | disposition home or self-care (01) | LOC: HO.SH 08:04 | PROVIDERS: Visit Provider Internal Medicine | DX: H93.11 Tinnitus, right ear (principal) | CPT/HCPCS: 92557 ==

== ENCOUNTER 2023-09-16 07:52 | Outpatient (REF) | payer BC, SELFPAY ==
[2023-09-16 11:52] LABS: MANUAL DIFF FLAG NO
[2023-09-16 12:14] LABS: Alanine Aminotransferase 18 U/L (0-31); Albumin Level 4.3 g/dL (3.5-5.0); Alkaline Phosphatase 79 U/L (39-117); Anion Gap 10 (12-20); Aspartate Amino Transferase 20 U/L (5-31); Bilirubin Total 1.2 mg/dL (0.0-1.0); Blood Urea Nitrogen 10 mg/dL (9-16); Calcium 8.4 mg/dL (8.4-10.2); Carbon Dioxide 27 mmol/L (22-29); Chloride 107 mmol/L (96-108); Cholesterol 228 mg/dL (<200); Estimated Glomerular Filt Rate > 60; Glucose Fasting 90 mg/dL (60-99); HDL Cholesterol 62 mg/dL (>40); LDL Cholesterol Calculated 146 mg/dL (<100); Potassium 3.5 mmol/L (3.3-5.1); Sodium 140 mmol/L (135-145); Total Protein 7.6 g/dL (6.5-8.0); Triglycerides 101 mg/dL (<150)
[2023-09-16 12:32] LABS: Basophils Percent Auto 0.7 % (0-2); Eosinophils Absolute Auto 0.1 X10*3/uL (0.0-0.4); Eosinophils Percent Auto 2.2 % (0-4); Hematocrit 39.3 % (37.0-47.0); Hemoglobin 12.2 g/dl (12.0-16.0); Imm Gran Abs Auto 0.01 X10*3/uL (0.00-0.03); Imm Gran Pct Auto 0.2 % (0.0-0.4); Lymphocytes Absolute Auto 2.5 X10*3/uL (1.2-4.9); Lymphocytes Percent Auto 54.3 % (20-40); Mean Corpuscular Hemoglobin 27.2 pg (27.0-33.0); Mean Corpuscular Volume 87.5 fL (80.0-98.0); Mean Platelet Volume 11.4 fL (9.4-12.3); Monocytes Absolute Auto 0.3 X10*3/uL (0.1-1.2); Monocytes Percent Auto 6.2 % (2-11); Neutrophils Absolute Auto 1.6 x10*3/uL (2.0-8.3); Neutrophils Percent Auto 36.4 % (45-73); Platelet Count 234 X10*3/uL (160-400); Red Blood Count 4.49 X10*6/uL (4.20-5.50); Red Cell Distribution Width 12.9 % (11.0-16.0); White Blood Count 4.5 X10*3/uL (4.8-10.8)
== END 2023-09-16 07:53 | disposition home or self-care (01) ==
LOC: HO.HMGCLDS 07:52
PROVIDERS: PCP Internal Medicine; Visit Provider Internal Medicine
DX: E78.00 Pure hypercholesterolemia, unspecified (principal); I10 Essential (primary) hypertension
CPT/HCPCS: 36415; 80053; 80061; 85025

== ENCOUNTER 2023-09-16 09:55 | Outpatient (AMB) | payer BC, SELFPAY ==
--- NOTE | 2023-09-16 09:56 | MHC.PC.OV ---
Vital Signs 09/16/23 09:57 09/16/23 10:29 Height 5 ft 7 in Weight 170 lb BMI 26.6 BP 160/98 H 160/96 H Blood Pressure Location Lt brachial Lt brachial Position Sitting Sitting Pulse 78 Pulse Source Pulse Oximeter Pulse Oximetry (%) 99 Oxygen Delivery Method Room Air Intake Visit Reasons: acromegaly, goiter, hyperlipidemia Electric Appliance Installer Required: No Maintenance Services Dispatcher: Not Required per policy Accompanied by: Self / Same As Patient Allergies Sulfa (Sulfonamide Antibiotics) [SULFA (SULFONAMIDE ANTIBIOTICS)] Allergy (Unknown, Verified 09/16/23 10:10) RASH Medication List - Last Reconciled 09/16/23 by Timbo Cardona MD amlodipine 5 mg PO DAILY 90 days bisacodyl (Dulcolax (bisacodyl)) 20 mg (4 x 5 mg) PO ONCE 1 day cholecalciferol (vitamin D3) 25 mcg PO DAILY minoxidil 1.25 mg PO DAILY polyethylene glycol 3350 (Miralax) 238 grams PO ONCE 1 day Tobacco use date assessed: 03/16/23 Dental Screening Dental Screen Date: 09/16/23 Did you have a dental visit in the last 12 months?: Yes Did you have a dental problem in the last 6 months where you did not have access to dental care?: No Was dental information given to patient?: Patient has dentist HPI acromegaly, goiter, hyperlipidemia HPI Details Patient comes in today for her follow up visit States that she feels okay She denies any headaches or dizziness Denies any chest pains, no SOB No nausea/vomiting, no abdominal pain No change in bowel habits noted States that she just had her follow up labs done earlier this morning - results of her labs are not yet available to review at this time States that her repeat colonoscopy was originally scheduled for earlier this month but was recently rescheduled to November 2023 [facility] Medical History Overweight (BMI 25.0-29.9) 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 Acromegaly Vitamin D deficiency Goiter Pure hypercholesterolemia Benign essential hypertension Surgical History Hx of colonoscopy (~03/28/18) Hx of dilation and curettage (~2018) History of tubal ligation History of brain surgery (~2005) Family History Father Renal failure Hypertension Mother Hypertension Social History Housing: House Alcohol intake: never Patient Tobacco Use Status: Never used Tobacco e-Cigarette/Vaping Use: Never Used Second Hand Smoke Exposure: Yes service: No Current occupational status: employed Cognitive needs: No Hearing needs: No Vision needs: Yes (glasses) Female Reproductive History Menstrual Age of Menarche: 11 Questionnaire Thrive Questionnaire Date Thrive assessed: 03/16/23 JOON-7 AMB Questionnaire JOON-7 Date JOON - 7 assessed: 03/16/23 Source: Developed by Drs. Jim Gil, Riddhi Hayward, Lamont Ramirez and colleagues, with an educational mamadou from [employer]. Review of Systems Const Denies chills, Denies fatigue, Denies fever(s) and Denies headache(s) ENT Denies dysphagia, Denies dizziness, Denies otalgia, Denies headache(s), Denies neck pain, Denies odynophagia, Denies tinnitus and Denies sore throat Card Denies chest pain, Denies palpitations and Denies dyspnea Resp Denies cough and Denies dyspnea GI Denies abdominal pain, Denies constipation, Denies dysphagia, Denies heartburn, Denies diarrhea, Denies nausea, Denies odynophagia and Denies vomiting Denies difficulty voiding, Denies nocturia, Denies dysuria and Denies urinary urgency Musc Denies neck pain Skin/Breast Denies rash Neuro Denies dizziness and Denies headache(s) Endo Denies fatigue and Denies palpitations Physical exam (Primary Care) Vital Signs: Last Vital Signs Pulse 78 09/16/23 09:57 BP 160/98 H 09/16/23 09:57 Pulse Ox 99 09/16/23 09:57 Oxygen Delivery Method Room Air 09/16/23 09:57 BMI result Body Mass Index 26.6 Tobacco/Smoking Status: Tobacco use Status Tobacco use date assessed 03/16/23 09/16/23 10:03 Patient Tobacco Use Status Never used Tobacco 09/16/23 10:03 e-Cigarette/Vaping Use Never Used 09/16/23 10:03 Thrive Assessment: Date of Thrive Assessment Date Thrive assessed 03/16/23 09/16/23 10:03 Assessment and Plan Assessment & Plan (1) Benign essential hypertension: Code(s): I10 - Essential (primary) hypertension Plan: Reinforced low-sodium diet - goal is systolic BP of 120 to 130 mm or less Is advised that her blood pressure is significantly elevated this morning (repeat BP is still at 160/96 mm) Continue Amlodipine 5 mg QD for now Patient is advised to monitor her BP closely and we will have the nurse navigators also reach out to her and help keep track of her blood pressure Discussed that if her BP remains persistently high over the next few weeks, we may have to address this and make some adjustments or addition to her current BP med regimen (2) Cardiac murmur: Code(s): R01.1 - Cardiac murmur, unspecified Plan: Is most likely a flow murmur due to her thin body habitus and the proximity of her heart to her chest wall Echocardiogram done back in March 2023 came out completely normal, with no valvular abnormalities noted (3) Pure hypercholesterolemia: Code(s): E78.00 - Pure hypercholesterolemia, unspecified Plan: Will follow up the results of her labs done earlier this morning - results are not yet available to review at this time Patient is reminded that her cholesterol levels were still elevated and have not changed/improved much from previous on her previous labs from a few months ago Reinforced low cholesterol diet She continues to decline pharmacotherapy for her high cholesterol and was advised to at least try some OTC supplements like Cholest-OFF and red yeast rice to help lower her cholesterol level Will recheck her fasting lipids and labs again in 6 months for follow-up (4) Goiter: Comment: S/P left thyroid lobectomy on 06/28/2017 Code(s): E04.9 - Nontoxic goiter, unspecified Plan: She was referred back to Dr. King for endocrinology follow up and management at her last visit as patient used to see Dr. King at [facility] a few years ago Repeat thyroid US done in June 2022 revealed (+) multiple thyroid nodules, with the right upper /midpole nodules having increased in size and TI-RADS category. Continued follow-up recommended She underwent FNA Bx back in May 2023 - pathology came back benign but she was advised by Dr. King at her recent appointment with him to get a second opinion regarding this and she has been referred to endocrinology in [place], [place] for a second opinion (5) Vitamin D deficiency: Code(s): E55.9 - Vitamin D deficiency, unspecified Plan: Continue Vitamin D3 2000 units QD Will recheck Vitamin D level in 6 months for follow up (6) Acromegaly: Comment: (+) history of acromegaly, status post transsphenoidal resection. 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 Was advised that unless her WBC count drop below 2.0, she should not require any intervention and will just need to continue monitoring her CBC and observe patient closely (8) Osteopenia of neck of femur: Code(s): M85.859 - Other specified disorders of bone density and structure, unspecified thigh Qualifiers: Laterality: unspecified laterality Qualified Code(s): M85.859 - Other specified disorders of bone density and structure, unspecified thigh Plan: Repeat BMD done on 01/02/2022 revealed (+) 7.9% decline in BMD in the left femur compared to her previous BMD on 10/31/2019; AP spine BMD was mostly unchanged Will continue to monitor her BMD regularly every 2 years - will be due for repeat sometime in the spring Patient is again encouraged to stay active and exercise regularly and continue taking her OTC Calcium and Vitamin D supplements daily (9) Overweight (BMI 25.0-29.9): Code(s): E66.3 - Overweight Plan: Reinforced diet/exercise as tolerated/lose weight Plan To return in 6 months for her next annual physical examination but is advised that depending on how her blood pressure goes, we may need to see her back earlier Orders: Orders Lipid Panel 6 Months E78.00 - Pure hypercholesterolemia, unspecified Comprehensive [place]. Panel Fast 6 Months E78.00 - Pure hypercholesterolemia, unspecified Free T4 (Free Thyroxine) 6 Months E04.9 - Nontoxic goiter, unspecified Vitamin D 25-OH Total 6 Months E55.9 - Vitamin D deficiency, unspecified Complete Blood Count Auto Diff 6 Months I10 - Essential (primary) hypertension Thyroid Stimulating Hormone 6 Months E04.9 - Nontoxic goiter, unspecified UA CC w/rflx Micro + Cult 6 Months R30.0 - Dysuria Coding Level of Care Code Est Pt Level 4 (85766) Diagnoses Benign essential hypertension I10 Cardiac murmur R01.1 Pure hypercholesterolemia E78.00 Goiter E04.9 Vitamin D deficiency E55.9 Acromegaly E22.0 Chronic leukopenia D72.819 Osteopenia of neck of femur, unspecified laterality M85.859 Laterality: unspecified laterality Overweight (BMI 25.0-29.9) E66.3
[2023-09-16 09:57] VITALS: BP 160/98; PULSE 78; O2SAT 99; BMI 26.6
[2023-09-16 10:29] VITALS: BP 160/96
== END 2023-09-16 10:36 | disposition home or self-care (01) ==
PROVIDERS: Visit Provider Internal Medicine
DX: I10 Essential (primary) hypertension (principal); R01.1 Cardiac murmur, unspecified; E78.00 Pure hypercholesterolemia, unspecified; E22.0 Acromegaly and pituitary gigantism; E04.9 Nontoxic goiter, unspecified; E55.9 Vitamin D deficiency, unspecified; D72.819 Decreased white blood cell count, unspecified; M85.859 Other specified disorders of bone density and structure, unspecified thigh; E66.3 Overweight
CPT/HCPCS: 99214

== ENCOUNTER 2023-10-06 07:53 | Outpatient (REF) | payer BC, SELFPAY ==
[2023-10-06 11:26] LABS: Appearance Urine Turbid; Color Urine Yellow; Glucose Urine UA Negative (Negative); Leukocyte Esterase Urine Large (3+) (Negative); Nitrite Urine Negative (Negative); PH 5.5 (5.0-9.0); Specific Gravity - Urine 1.015 (1.005-1.025); UMIC TRIGGER UACC YES; Urine Blood Moderate (2+) (Negative); Urine Ketones Negative (Negative); Urine Protein 30 (1+) mg/dL (Neg-Trace)
[2023-10-06 11:29] LABS: Bacteria Urine 4+ (None Seen); Hyaline Casts Urine 0-2 /LPF (0-2); Squamous Epithelial Cell Urine 0-2 /HPF (0-2); UACC Culture Trigger YES; WBC Urine >50 /HPF (0-5)
== END 2023-10-06 07:54 | disposition home or self-care (01) ==
LOC: HO.HMGCLDS 07:53
PROVIDERS: PCP Internal Medicine; Visit Provider Internal Medicine
DX: R39.9 Unspecified symptoms and signs involving the genitourinary system (principal)
CPT/HCPCS: 81001; 87086; 87088; 87186

== ENCOUNTER 2023-12-13 10:01 | Day surgery (SDC) | payer BC, SELFPAY ==
--- NOTE | 2023-12-10 11:56 | P.CONAN_ITS ---
Documented by User: Clara Navarro NP 12/10/23 11:56 HPI - Anesthesia Eval Consult details Narrative: 53yo F for Colonoscopy PMFSH Active Problems Active Problems: All Active Problems (Updated 09/16/23 @ 10:47 by Timbo Cardona MD) Encounter for screening colonoscopy (Acute) Cardiac murmur (Acute) Tinnitus, right ear (Acute) Respiratory tract infection (Acute) Urinary tract infection (Acute) Well woman exam (Acute) Overweight (BMI 25.0-29.9) (Acute) Osteopenia of neck of femur (Acute) Chronic leukopenia (Acute) Acromegaly (Acute) Vitamin D deficiency (Acute) Goiter (Acute) Pure hypercholesterolemia (Acute) Benign essential hypertension (Acute) Annual physical exam (Acute) Past Medical History Medical History Overweight (BMI 25.0-29.9) 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 Acromegaly Vitamin D deficiency Goiter Pure hypercholesterolemia Benign essential hypertension Family History Family History Father Renal failure Hypertension Mother Hypertension Surgical History Surgical History Hx of colonoscopy (~03/28/18) Hx of dilation and curettage (~2017) History of tubal ligation History of brain surgery (~2004) Social History Social History Housing: House Alcohol intake: never Patient Tobacco Use Status: Never used Tobacco e-Cigarette/Vaping Use: Never Used Second Hand Smoke Exposure: Yes Use of substances other than those prescribed or required for medical reasons: No Are you DNR?: No Advance Directives: No Advance Directives Information Provided: Yes service: No Current occupational status: employed Cognitive needs: No Hearing needs: No Vision needs: Yes (glasses) Meds Allergies Allergy/AdvReac Type Severity Reaction Status Date / Time Sulfa (Sulfonamide Allergy Unknown RASH Verified 09/16/23 10:10 Antibiotics) [SULFA (SULFONAMIDE ANTIBIOTICS)] Home Medications Medication Instructions Recorded Confirmed Last Taken Type cholecalciferol (vitamin D3) 25 25 mcg PO DAILY 03/04/21 12/13/23 Unknown History mcg (1,000 unit) capsule minoxidil 2.5 mg tablet 1.25 mg PO DAILY 03/10/22 12/13/23 Unknown History Assessment and Plan Assessment Anesthesia Assessment: Chart Reviewed Documented by User: Lacey Reeves MD 12/13/23 10:51 [facility] Past Medical History Medical History Overweight (BMI 25.0-29.9) 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 Acromegaly Vitamin D deficiency Goiter Pure hypercholesterolemia Benign essential hypertension Family History Family History Father Renal failure Hypertension Mother Hypertension Family history of problems with anesthesia: No Surgical History Surgical History Hx of colonoscopy (~03/28/18) Hx of dilation and curettage (~2017) History of tubal ligation History of brain surgery (~2004) History of Problems with Anesthesia: No Social History Social History Housing: House Alcohol intake: never Patient Tobacco Use Status: Never used Tobacco e-Cigarette/Vaping Use: Never Used Second Hand Smoke Exposure: Yes Use of substances other than those prescribed or required for medical reasons: No Are you DNR?: No Advance Directives: No Advance Directives Information Provided: Yes service: No Current occupational status: employed Cognitive needs: No Hearing needs: No Vision needs: Yes (glasses) Meds Allergies Allergy/AdvReac Type Severity Reaction Status Date / Time Sulfa (Sulfonamide Allergy Unknown RASH Verified 09/16/23 10:10 Antibiotics) [SULFA (SULFONAMIDE ANTIBIOTICS)] Home Medications Medication Instructions Recorded Confirmed Last Taken Type cholecalciferol (vitamin D3) 25 25 mcg PO DAILY 03/04/21 12/13/23 Unknown History mcg (1,000 unit) capsule minoxidil 2.5 mg tablet 1.25 mg PO DAILY 03/10/22 12/13/23 Unknown History Exam Airway Mallampati Class: I TM Dist: >3cm Neck ROM: Full Heart: rrr Lungs: cta Assessment and Plan Assessment Anesthesia Assessment: Anesthesia Plan Discussed Final Anesthetic Review Family History of Problems with Anesthesia: No History of Problems with Anesthesia: No NPO: Yes ASA Class: II Final Preanesthetic Review: No Changes in Pt Med Stat, Meds/Allgs Chart Reviewed and Consent Obtained/Reviewed Patient Risk: Intermediate Procedure Risk: Intermediate Anesthetic Plan Anesthetic Plan: MAC: Disposition: Standard PACU
[2023-12-13 10:23] VITALS: BMI 26.2
[2023-12-13 10:25] VITALS: BP 134/92; PULSE 96; RESP 18; TEMP 36.5; O2SAT 100
[2023-12-13] MEDS: Lactated Ringers 1,000 ML 100 ML IVCONT (10:51)
--- NOTE | 2023-12-13 11:42 | MHC.SHP ---
Pre-Procedural Eval Section A - 24 Hr Update-Section A only Date of Service: 12/13/23 The patient is an INPATIENT: No The patient has been examined within 24 hours of the surgical procedure. The History & Physical has been completed within 30 days and I have reviewed it.: No Section B - Complete if H&P > 30 days Chief Complaint: Colon cancer screening Relevant Family History (Specify if Yes): No Relevant Social History: None Present Medications: see Short Stay Collaborative assessment Medical History: Significant History (Acromegaly Benign essential hypertension Chronic leukopenia Goiter Osteopenia of neck of femur Overweight (BMI 25.0-29.9) Pure hypercholesterolemia Vitamin D deficiency) History of Previous Operations: Relevant previous surgery/procedure and date(s) (History of brain surgery (~2004) History of tubal ligation Hx of colonoscopy (~03/28/18) Hx of dilation and curettage (~2017)) Allergies: Allergies Allergy/AdvReac Type Severity Reaction Status Date / Time Sulfa (Sulfonamide Allergy Unknown RASH Verified 09/16/23 10:10 Antibiotics) [SULFA (SULFONAMIDE ANTIBIOTICS)] Review of Systems Sugical H&P ROS: Negative: Constitution, Cardiovascular, Respiratory and Gastrointestinal Exam Surgical H&P Exam: Normal: Heart, Normal: Lungs, Normal: Extremities and Normal: Abdomen Plan Diagnosis/Plan: Unchanged I have reviewed the history and physical and performed a pertinent physical examination on my patient. No changes have occurred unless specified. Time Spent With Patient Time: Total time managing care of this patient today ____ minutes.
--- NOTE | 2023-12-13 12:58 | P.OP_ITS ---
Operative Note Operative Note Date of Service: 12/13/23 Narrative: COLONOSCOPY TILL CECUM WITH BIOPSIES Pre-op diagnosis: Colon cancer screening Post-op diagnosis:? Colon polyps, diverticulosis, hemorrhoids Endoscopist:? Kelly Clement MD Anesthesia:?MAC Consent: Indications for the procedure and potential complications of bleeding, perforation, reaction to medications and missed diagnosis were discussed with the patient and informed consent was obtained. Instrument: Olympus PCF H 190 L variable stiffness pediatric colonoscope Monitoring: Vital signs and clinical assessment, intermittent blood pressure monitoring, continuous EKG monitoring, Pulse oximetry and Carbon Dioxide monitoring were done throughout the procedure. Please see anesthesia flowsheet. Colon withdrawl time was 16 minutes. Procedure: The patient was placed in the left lateral decubitis position and pre-procedure medications were administered. After a digital rectal examination of the ano-rectum, the video colonoscope was inserted into the rectum and advanced through the colon to the cecum. The colonoscope was slowly withdrawn in a retrograde panoramic fashion and the colon mucosa was carefully examined including a retroflexed view of the rectum. Findings and interventions are described below. Procedure Difficulty: Without difficulty Findings: Terminal Ileum: Not evaluated Cecum: Normal Ascending Colon: Normal Transverse Colon: Normal Descending Colon: Moderate diverticulosis Sigmoid Colon: 7-8 mm sessile polyp - removed with a cold biopsy. Moderate diverticulosis Rectum: A few 2-4 mm diminutive appearing polyps - 1 was removed with a cold biopsy. Ano-rectum: Moderate internal hemorrhoids Colon preparation: Good after some irrigation [place] Bowel Preparation Scale Right colon; 2 Transverse colon: 2 Left colon; 2 (0 = Unprepared colon segment with mucosa not seen due to solid stool that cannot be cleared. 1 = Portion of mucosa of the colon segment seen, but other areas of the colon segment not well seen due to staining, residual stool and/or opaque liquid. 2 = Minor amount of residual staining, small fragments of stool and/or opaque liquid, but mucosa of colon segment seen well. 3 = Entire mucosa of colon segment seen well with no residual staining, small fragments of stool or opaque liquid) Impression and Post Procedure Diagnosis: Colonoscopy Findings: Two small polyps removed Moderate diverticulosis seen in the left colon Moderate hemorrhoids on retroflexed exam. Plan: I will send a letter with pathology results Repeat Colonoscopy interval based on path results - in 5 years if polyps are adenomatous and 10 years if polyps are hyperplastic. Above findings were reviewed with the patient and colon polyps and diverticulosis handouts were given in the discharge area.
[2023-12-13 13:05] VITALS: BP 89/61; PULSE 82; RESP 18; TEMP 36.2; O2SAT 98
[2023-12-13 13:19] VITALS: BP 137/84; PULSE 70; RESP 18; O2SAT 98
== END 2023-12-13 13:44 | disposition home or self-care (01) ==
PROVIDERS: PCP Internal Medicine; Visit Provider Internal Medicine Gastroenterology
PROC: 0DJD8ZZ Inspection of Lower Intestinal Tract, Via Natural or Artificial Opening Endoscopic (ICD-10-PCS; CPT 45378; principal; 2023-12-13 11:20)
DX: Z12.11 Encounter for screening for malignant neoplasm of colon (principal); D12.5 Benign neoplasm of sigmoid colon; K62.1 Rectal polyp; K57.30 Diverticulosis of large intestine without perforation or abscess without bleeding; K64.8 Other hemorrhoids; I10 Essential (primary) hypertension; E78.00 Pure hypercholesterolemia, unspecified; D72.818 Other decreased white blood cell count; E22.0 Acromegaly and pituitary gigantism; E04.9 Nontoxic goiter, unspecified; Z88.2 Allergy status to sulfonamides; E55.9 Vitamin D deficiency, unspecified; M85.88 Other specified disorders of bone density and structure, other site; Z79.899 Other long term (current) drug therapy; Z98.890 Other specified postprocedural states
CPT/HCPCS: 45380; 88305; J2704

== ENCOUNTER → 2023-12-13 10:01 | Outpatient (BNV) | payer BC, SELFPAY | PROVIDERS: PCP Internal Medicine; Visit Provider Internal Medicine Gastroenterology | DX: Z12.11 Encounter for screening for malignant neoplasm of colon (principal); K63.5 Polyp of colon; K57.90 Diverticulosis of intestine, part unspecified, without perforation or abscess without bleeding; K64.8 Other hemorrhoids | CPT/HCPCS: 45380 ==

== ENCOUNTER 2024-01-18 11:22 | Outpatient (REF) | payer BC, SELFPAY ==
[2024-01-18 16:32] LABS: Appearance Urine Clear; Color Urine Yellow; Glucose Urine UA Negative (Negative); Leukocyte Esterase Urine Moderate (2+) (Negative); Nitrite Urine Negative (Negative); PH 7.5 (5.0-9.0); Specific Gravity - Urine <= 1.005 (1.005-1.025); UMIC TRIGGER UACC YES; Urine Blood Negative (Negative); Urine Ketones Negative (Negative); Urine Protein Negative (Neg-Trace)
[2024-01-18 16:36] LABS: Bacteria Urine None Seen (None Seen); Hyaline Casts Urine 0-2 /LPF (0-2); RBC Urine 0-2 /HPF (0-2); Squamous Epithelial Cell Urine 0-2 /HPF (0-2); UACC Culture Trigger YES
== END 2024-01-18 11:23 | disposition home or self-care (01) ==
LOC: HO.HKASLDS 11:22
PROVIDERS: Visit Provider Internal Medicine
DX: N39.0 Urinary tract infection, site not specified (principal)
CPT/HCPCS: 81001; 81003; 87086; 87088; 87186

== ENCOUNTER 2024-03-14 07:35 | Outpatient (REF) | payer BC, SELFPAY ==
[2024-03-14 10:22] LABS: MANUAL DIFF FLAG NO
[2024-03-14 10:32] LABS: Basophils Percent Auto 0.7 % (0-2); Eosinophils Absolute Auto 0.1 X10*3/uL (0.0-0.4); Eosinophils Percent Auto 2.7 % (0-4); Hematocrit 38.9 % (37.0-47.0); Hemoglobin 12.3 g/dl (12.0-16.0); Imm Gran Abs Auto 0.01 X10*3/uL (0.00-0.03); Imm Gran Pct Auto 0.2 % (0.0-0.4); Lymphocytes Absolute Auto 2.4 X10*3/uL (1.2-4.9); Lymphocytes Percent Auto 53.1 % (20-40); Mean Corpuscular HGB Conc 31.6 g/dl (31.0-35.0); Mean Corpuscular Hemoglobin 27.5 pg (27.0-33.0); Mean Platelet Volume 11.7 fL (9.4-12.3); Monocytes Absolute Auto 0.3 X10*3/uL (0.1-1.2); Monocytes Percent Auto 6.7 % (2-11); Neutrophils Absolute Auto 1.6 x10*3/uL (2.0-8.3); Neutrophils Percent Auto 36.6 % (45-73); Platelet Count 226 X10*3/uL (160-400); Red Blood Count 4.47 X10*6/uL (4.20-5.50); Red Cell Distribution Width 13.1 % (11.0-16.0); White Blood Count 4.5 X10*3/uL (4.8-10.8)
[2024-03-14 10:58] LABS: Alanine Aminotransferase 17 U/L (0-31); Albumin Level 4.3 g/dL (3.5-5.0); Alkaline Phosphatase 78 U/L (39-117); Anion Gap 14 (12-20); Aspartate Amino Transferase 19 U/L (5-31); Blood Urea Nitrogen 10 mg/dL (9-16); Calcium 9.4 mg/dL (8.4-10.2); Carbon Dioxide 24 mmol/L (22-29); Chloride 108 mmol/L (96-108); Cholesterol 233 mg/dL (<200); Estimated Glomerular Filt Rate > 60; Glucose Fasting 96 mg/dL (60-99); HDL Cholesterol 61 mg/dL (>40); LDL Cholesterol Calculated 149 mg/dL (<100); Potassium 3.8 mmol/L (3.3-5.1); Sodium 142 mmol/L (135-145); Total Protein 7.3 g/dL (6.5-8.0); Triglycerides 116 mg/dL (<150)
[2024-03-14 11:17] LABS: Free T4 (Free Thyroxine) 0.95 ng/dL (0.71-1.85); Thyroid Stimulating Hormone 1.93 uIU/mL (0.32-4.0); Vitamin D 25-OH Total 60.5 ng/mL (>30)
== END 2024-03-14 07:36 | disposition home or self-care (01) ==
LOC: HO.HMGCLDS 07:35
PROVIDERS: PCP Internal Medicine; Visit Provider Internal Medicine
DX: E04.9 Nontoxic goiter, unspecified (principal); E78.00 Pure hypercholesterolemia, unspecified; E55.9 Vitamin D deficiency, unspecified; I10 Essential (primary) hypertension
CPT/HCPCS: 36415; 80053; 80061; 82306; 84439; 84443; 85025

== ENCOUNTER 2024-03-17 08:25 | Outpatient (REF) | payer BC, SELFPAY ==
[2024-03-17 10:37] LABS: Appearance Urine Clear; Color Urine Yellow; Glucose Urine UA Negative (Negative); Leukocyte Esterase Urine Negative (Negative); Nitrite Urine Negative (Negative); PH 5.5 (5.0-9.0); Specific Gravity - Urine 1.015 (1.005-1.025); Urine Blood Negative (Negative); Urine Ketones Negative (Negative); Urine Protein Negative (Neg-Trace)
== END 2024-03-17 08:26 | disposition home or self-care (01) ==
LOC: HO.HMGCLNP 08:25
PROVIDERS: PCP Internal Medicine; Visit Provider Internal Medicine
DX: R30.0 Dysuria (principal)
CPT/HCPCS: 81003

== ENCOUNTER 2024-03-17 08:57 | Outpatient (AMB) | payer BC, SELFPAY ==
[2024-03-17 09:04] VITALS: BP 140/82; PULSE 60; O2SAT 99; BMI 27.4
--- NOTE | 2024-03-17 09:04 | A.OFFPC_ITS ---
Vital Signs 03/17/24 09:04 03/17/24 09:30 Height 5 ft 7 in Weight 175 lb BMI 27.4 BP 140/82 H 146/88 H Blood Pressure Location Lt brachial Lt brachial Position Sitting Sitting Pulse 60 Pulse Source Pulse Oximeter Pulse Oximetry (%) 99 Oxygen Delivery Method Room Air Intake Visit Reasons: pe Registered Account Administrator Required: No Bioinformatics Support Specialist: Not Required per policy Accompanied by: Self / Same As Patient Allergies Sulfa (Sulfonamide Antibiotics) [SULFA (SULFONAMIDE ANTIBIOTICS)] Allergy (Unknown, Verified 03/17/24 09:14) RASH Medication List - Last Reconciled 03/17/24 by Timbo Cardona MD amlodipine 5 mg PO DAILY 90 days cholecalciferol (vitamin D3) 25 mcg PO DAILY minoxidil 1.25 mg PO DAILY Tobacco use date assessed: 03/17/24 Dental Screening Dental Screen Date: 03/17/24 Did you have a dental visit in the last 12 months?: Yes Did you have a dental problem in the last 6 months where you did not have access to dental care?: No Was dental information given to patient?: Patient has dentist HPI pe HPI Details Patient comes in today for her annual physical examination States that she feels okay She denies any headaches or dizziness Denies any chest pains, no SOB No nausea/vomiting, no abdominal pain No change in bowel habits noted Denies any acute urinary symptoms Had her screening colonoscopy done a few months ago on 12/13/2023 - (+) tubular adenoma and she is recommended to get repeat colonoscopy done in 5 years She is scheduled for her annual pap smear/gynecology exam and mammogram in the next couple of weeks [facility] Medical History Overweight (BMI 25.0-29.9) 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 Acromegaly Vitamin D deficiency Goiter Pure hypercholesterolemia Benign essential hypertension Surgical History Hx of colonoscopy (~03/28/18) Hx of dilation and curettage (~2017) History of tubal ligation History of brain surgery (~2004) Family History Father Renal failure Hypertension Mother Hypertension Social History Housing: House Alcohol intake: never Patient Tobacco Use Status: Never used Tobacco e-Cigarette/Vaping Use: Never Used Second Hand Smoke Exposure: Yes service: No Current occupational status: employed Cognitive needs: No Hearing needs: No Vision needs: Yes (glasses) Female Reproductive History Menstrual Age of Menarche: 11 Questionnaire PHQ-9 Over the last 2 weeks, how often have you been bothered by any of the following problems? 1. Little interest or pleasure in doing things: not at all 2. Feeling down, depressed, or hopeless: not at all 3. Trouble falling or staying asleep, or sleeping too much: not at all 4. Feeling tired or having little energy: not at all 5. Poor appetite or overeating: not at all 6. Feeling bad about yourself - or that you are a failure or have let yourself or your family down: not at all 7. Trouble concentrating on things, such as reading the newspaper or watching television: not at all 8. Moving or speaking so slowly that other people could have noticed. Or the opposite - being so fidgety or restless that you have been moving around a lot more than usual: not at all 9. Thoughts that you would be better off or of hurting yourself in some way: not at all Total score: 0 Depression Screening Interpretation: Negative Depression Screening Done: Yes 18458 - PHQ-9 Billing: Yes Source: Developed by Drs. Jim Gil, Riddhi Hayward, Lamont Ramirez and colleagues, with an educational mamadou from [employer]. Thrive Questionnaire Date Thrive assessed: 03/17/24 I am a: Patient What is your living situation today?: I have a steady place to live Within the past 12 months, did the food you bought not last and you didn't have the money to get more?: Never true Within the past 12 months, did you worry whether your food would run out before you got money to buy more?: Never true Do you have trouble paying for medicines?: No Do you have trouble getting transportation to medical appointments?: No Do you have trouble paying your heating and electricity bill?: No Do you have trouble taking care of your child, family member or friend?: No Do you have trouble with day-to-day activities such as bathing, preparing meals, shopping, managing finances, etc.?: No Are you currently unemployed and looking for a job?: No Are you interested in more education?: No Please select the resources that you would like help with: None Currently or been in a relationship where the following occur: no concerns reported THRIVE Score: 0 AUDIT C Alcohol Use Questionnaire (AUDIT-C) 1. How often do you have a drink containing alcohol?: Never 3. How often do you have six or more drinks on one occasion?: Never Total Score: 0 Score Reviewed/Action Taken: Yes JOON-7 AMB Questionnaire JOON-7 Date JOON - 7 assessed: 03/17/24 Feeling nervous, anxious, or on edge: 0 = Not at all Not being able to stop or control worryin = Not at all Worrying too much about different things: 0 = Not at all Trouble relaxin = Not at all Being so restless that it is hard to sit still: 0 = Not at all Becoming easily annoyed or irritable: 0 = Not at all Feeling afraid as if something awful might happen: 0 = Not at all Total JOON-7 score (0-4 normal; 5-9 mild; 10-14 moderate; 15-21 severe): 0 Source: Developed by Drs. Jim Gil, Riddhi Hayward, Lamont Ramirez and colleagues, with an educational mamadou from [employer]. Review of Systems Const Denies chills, Denies fatigue, Denies fever(s), Denies headache(s) and Denies malaise Eyes Denies blurry vision, Denies change in vision, Denies irritation and Denies itchy eyes ENT Denies dysphagia, Denies dizziness, Denies otalgia, Denies headache(s), Denies nasal congestion, Denies neck pain, Denies odynophagia, Denies sinus pain and Denies sore throat Card Denies chest pain, Denies rapid heart rate, Denies irregular heart rhythm, Denies palpitations and Denies dyspnea Resp Denies chest congestion, Denies cough, Denies dyspnea and Denies wheezing GI Denies abdominal pain, Denies bloating, Denies constipation, Denies dysphagia, Denies heartburn, Denies diarrhea, Denies nausea, Denies odynophagia and Denies vomiting Denies hematuria, Denies urinary frequency, Denies dysuria, Denies urinary incontinence and Denies urinary urgency Musc Denies back pain, Denies arthralgias, Denies joint swelling, Denies muscle weakness and Denies neck pain Skin/Breast Denies breast pain, Denies breast mass, Denies change in pigmentation, Denies lesions, Denies rash and Denies unusual bruising Neuro Denies dizziness, Denies headache(s) and Denies paresthesias Psych Denies anxiety and Denies depression Endo Denies fatigue and Denies palpitations Oscar/Lymph Denies easy bruising Aller/Immun Denies itchy eyes and Denies wheezing Physical exam (Primary Care) Vital Signs: Last Vital Signs Pulse 60 03/17/24 09:04 BP 140/82 H 03/17/24 09:04 Pulse Ox 99 03/17/24 09:04 Oxygen Delivery Method Room Air 03/17/24 09:04 BMI result Body Mass Index 27.4 Tobacco/Smoking Status: Tobacco use Status Tobacco use date assessed 03/17/24 03/17/24 09:08 Patient Tobacco Use Status Never used Tobacco 03/17/24 09:08 e-Cigarette/Vaping Use Never Used 03/17/24 09:08 PHQ-9: PHQ-9 Score PHQ-9: Total score 0 03/17/24 09:08 Depression Screening Interpretation: Negative Thrive Assessment: Date of Thrive Assessment Date Thrive assessed 03/17/24 03/17/24 09:08 Currently or been in a relationship where the following occur: no concerns reported Const General: no acute distress, alert and awake Orientation/consciousness: patient oriented x3 HENMT Head: Yes normocephalic and Yes atraumatic Ears: external ears normal, TM's normal bilaterally and EAC's normal General nose exam: No nasal discharge present Face and sinus: Yes normal facial exam and Yes sinuses nontender Teeth and gingiva: dentition normal Throat: Yes posterior oropharynx normal and Yes tonsils normal (no TP congestion) Eyes Eyelids: Yes eyelids normal Conjunctivae: conjunctivae normal Pupils: Equal, round and reactive pupils present EOM: EOMs intact bilaterally Neck Neck: Yes no lymphadenopathy and Yes supple Thyroid: Thyroid normal and no masses Resp Auscultation: clear to auscultation bilaterally, no rales and no wheezes Cardio Rate: regular rate Rhythm: regular rhythm Heart sounds: Murmur heart sound present systolic soft, II/ and at the apex GI Palpation (GI): Soft to palpation, nontender and No hepatosplenomegaly present Auscultation: normal bowel sounds General: Yes no CVA tenderness Back/Spine/Pelvis Back: no CVA tenderness Thoracic/Lumbar Spine: thoracic and lumbar spine normal to inspection Skin Lesions: no lesions Rashes: no rashes Neuro General: patient oriented x3, moves all extremities, no focal motor deficits and CN's II-XI intact bilaterally Cranial nerves: Yes Equal, round and reactive pupils present Cognition (Neuro): normal cognition Gait exam (Neuro): Normal gait present Extrem General: Yes no clubbing, cyanosis or edema Results Reviewed Results Reviewed: Laboratory Tests 01/18/24 03/14/24 11:26 07:47 WBC 4.5 L Hgb 12.3 Hct 38.9 Plt Count 226 Sodium 142 Potassium 3.8 Creatinine 0.72 Estimated GFR > 60 Fasting Glucose 96 Calcium 9.4 D AST 19 ALT 17 Triglycerides 116 Cholesterol 233 H LDL Cholesterol, Calc 149 H HDL Cholesterol 61 25-OH Vitamin D Total 60.5 TSH 1.93 Free T4 0.95 Ur Specific [place] <= 1.005 Urine Protein Negative Urine Glucose (UA) Negative Urine Blood Negative Urine Nitrite Negative Ur Leukocyte Esterase Moderate (2+) H Assessment and Plan Assessment & Plan (1) Annual physical exam: Code(s): Z00.00 - Encounter for general adult medical examination without abnormal findings Plan: Results of her labs done a few days ago reviewed and discussed with patient She is up-to-date with her cancer screenings Is scheduled for her yearly mammogram and annual pap smear/gynecology exam in the next couple of weeks Had her screening colonoscopy done back in November 2023 and will be due for repeat colonoscopy in 5 years due to (+) tubular adenoma (2) Benign essential hypertension: Code(s): I10 - Essential (primary) hypertension Plan: Reinforced low-sodium diet - goal is systolic BP of 120 to 130 mm or less Patient is advised that her blood pressure is still elevated this morning (repeat BP is still at 146/88 mm) Continue Amlodipine 5 mg QD for now She is advised to continue monitoring her BP regularly (3) Cardiac murmur: Code(s): R01.1 - Cardiac murmur, unspecified Plan: Is most likely a flow murmur due to her thin body habitus and the proximity of her heart to her chest wall Echocardiogram done back in March 2023 came out completely normal, with no valvular abnormalities noted (4) Pure hypercholesterolemia: Code(s): E78.00 - Pure hypercholesterolemia, unspecified Plan: Patient is advised that her cholesterol levels (mostly her total and LDL cholesterol) are still elevated on her recent labs and have not changed/improved much from previous Reinforced low cholesterol diet She continues to decline pharmacotherapy for her high cholesterol; has been advised to try some OTC supplements like Cholest-OFF and red yeast rice to help lower her cholesterol level Will recheck her fasting lipids and labs in 6 months for follow-up (5) Osteopenia of neck of femur: Code(s): M85.859 - Other specified disorders of bone density and structure, unspecified thigh Qualifiers: Laterality: unspecified laterality Qualified Code(s): M85.859 - Other specified disorders of bone density and structure, unspecified thigh Plan: Repeat BMD done on 01/02/2022 revealed (+) 7.9% decline in BMD in the left femur compared to her previous BMD on 10/31/2019; AP spine BMD was mostly unchanged Will continue to monitor her BMD regularly every 2 years - will be due for repeat sometime in mid-2023 Patient is again encouraged to stay active and exercise regularly and continue taking her OTC Calcium and Vitamin D supplements daily (6) Goiter: Comment: S/P left thyroid lobectomy on 06/28/2017 Code(s): E04.9 - Nontoxic goiter, unspecified Plan: Repeat thyroid US done in June 2022 revealed (+) multiple thyroid nodules, with the right upper /midpole nodules having increased in size and TI-RADS category. Continued follow-up recommended She underwent FNA Bx back in May 2023 - pathology came back benign but she was advised by Dr. King at her recent appointment with him to get a second opinion regarding this and she has been referred to endocrinology in [place], [place] for a second opinion - states that she is still waiting to hear back from them as to how her recent Bx came out (7) Vitamin D deficiency: Code(s): E55.9 - Vitamin D deficiency, unspecified Plan: Continue Vitamin D3 2000 units QD (8) Acromegaly: Comment: (+) history of acromegaly, status post transsphenoidal resection. 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 Panel Fast 6 Months E78.00 - Pure hypercholesterolemia, unspecified Coding Level of Care Code Est Pt Prev Care 40-64y(92143) Diagnoses Annual physical exam Z00.00 Benign essential hypertension I10 Cardiac murmur R01.1 Pure hypercholesterolemia E78.00 Osteopenia of neck of femur, unspecified laterality M85.859 Laterality: unspecified laterality Goiter E04.9 Vitamin D deficiency E55.9 Acromegaly E22.0 Chronic leukopenia D72.819 Overweight (BMI 25.0-29.9) E66.3
[2024-03-17 09:30] VITALS: BP 146/88
== END 2024-03-17 09:36 | disposition home or self-care (01) ==
PROVIDERS: PCP Internal Medicine; Visit Provider Internal Medicine
DX: Z00.00 Encounter for general adult medical examination without abnormal findings (principal); E22.0 Acromegaly and pituitary gigantism; I10 Essential (primary) hypertension; R01.1 Cardiac murmur, unspecified; E78.00 Pure hypercholesterolemia, unspecified; M85.859 Other specified disorders of bone density and structure, unspecified thigh; E04.9 Nontoxic goiter, unspecified; E55.9 Vitamin D deficiency, unspecified; D72.819 Decreased white blood cell count, unspecified; E66.3 Overweight
CPT/HCPCS: 99396

== ENCOUNTER 2024-03-29 07:56 | Outpatient (AMB) | payer BC, SELFPAY ==
--- NOTE | 2024-03-29 08:02 | MHC.OFFVIS ---
Vital Signs 03/29/24 08:06 Height 5 ft 7 in Weight 170 lb BMI 26.6 BP 122/70 Intake Visit Reasons: SOCIAL WORK THERAPIST annual exam Online Marketing Coordinator Required: No Information Interpreted: non-clinical & clinical Supervisor Shop: Supervisor Shop Present (Kavya SALDIVAR) Accompanied by: Self / Same As Patient Allergies Sulfa (Sulfonamide Antibiotics) [SULFA (SULFONAMIDE ANTIBIOTICS)] Allergy (Unknown, Verified 03/29/24 08:07) RASH Post menopausal: Yes HPI Comments Details: Presenting for annual exam. No complaints. Last Pap/HPV was negative in 04/07 Last Mammogram was BI-RADS 1 in 04/09 Last Colonoscopy was done in 12/11, the recommendation was to repeat in 5 years [facility] Medical History Overweight (BMI 25.0-29.9) 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 Acromegaly Vitamin D deficiency Goiter Pure hypercholesterolemia Benign essential hypertension Surgical History Hx of colonoscopy (~03/28/18) Hx of dilation and curettage (~2017) History of tubal ligation History of brain surgery (~2004) Family History Father Renal failure Hypertension Mother Hypertension Social History Housing: House Alcohol intake: never Patient Tobacco Use Status: Never used Tobacco e-Cigarette/Vaping Use: Never Used Second Hand Smoke Exposure: Yes service: No Current occupational status: employed Cognitive needs: No Hearing needs: No Vision needs: Yes (glasses) Female Reproductive History Menstrual Age of Menarche: 11 Review of Systems Const All systems reviewed & are unremarkable except as noted in HPI and below Card Reports as per HPI Resp Reports as per HPI GI Reports as per HPI and Reports no additional complaints Reports as per HPI Physical Exam Vital Signs: Last Vital Signs BP 122/70 03/29/24 08:06 BMI result Body Mass Index 26.6 Const General: cooperative, healthy appearing and comfortable Chest Chest palpation & inspection: normal inspection of the chest and normal palpation of entire chest wall Breast/axilla inspection: normal inspection of the breasts and normal inspection of the axillae Breast/axilla palpation: normal palpation of the breasts, normal palpation of the axillae and no axillary lymphadenopathy Resp Effort & Inspection: normal respiratory effort Auscultation: clear to auscultation bilaterally Percussion: percussion normal Cardio Palpation: normal PMI Rate: regular rate Rhythm: regular rhythm Heart sounds: no murmurs and no rubs Peripheral pulses: Peripheral pulses 2+ throughout GI Inspection: Yes normal to inspection Palpation (GI): Soft to palpation, nontender, no guarding, not rigid and No hepatosplenomegaly present Percussion: Yes normal to percussion Auscultation: normal bowel sounds Rectal Exam - Female: deferred General: Yes bladder normal to palpation External Female Exam: No lesion Speculum Exam - Vagina: normal appearance of the vagina, normal palpation, normal vaginal discharge and not erythematous Speculum Exam - Cervix: normal appearance of the cervix and normal palpation Bimanual exam- vagina & uterus: normal bimanual exam, normal palpation, uterine size normal, bladder normal to palpation, consistency normal and normal palpation Bimanual Exam- Adnexa, other: normal adnexae, no masses and no tenderness Assessment & Plan Assessment & Plan (1) Well woman exam: Code(s): Z01.419 - Encounter for gynecological examination (general) (routine) without abnormal findings Category: Medical Plan: Co testing not indicated this year. Counseled the patient about the recommended dietary allowance of 1200 mg of Calcium & 600 IU of vitamin D. Mammogram scheduled in 04/10, instructions given the patient to schedule next screening mammogram in 04/11. The patient was instructed to perform monthly self-breast exams and schedule annual exam in a year. All questions answered and the patient verbalized understanding. Coding Level of Care Code Est Pt Prev Care 40-64y(76612) Diagnoses Well woman exam Z01.419
[2024-03-29 08:06] VITALS: BP 122/70; BMI 26.6
== END 2024-03-29 08:30 | disposition home or self-care (01) ==
PROVIDERS: PCP Internal Medicine; Visit Provider Obstetrics & Gynecology
DX: Z01.419 Encounter for gynecological examination (general) (routine) without abnormal findings (principal)
CPT/HCPCS: 99396

== ENCOUNTER → 2024-03-29 07:56 | Outpatient (BNVA) | payer BC, SELFPAY | PROVIDERS: PCP Internal Medicine; Visit Provider Obstetrics & Gynecology ==

== ENCOUNTER 2024-04-03 07:39 | Outpatient (REF) | payer BC, SELFPAY | END 2024-04-03 07:40 | disposition home or self-care (01) | LOC: HO.MAMMO 07:39 | PROVIDERS: PCP Internal Medicine; Visit Provider Internal Medicine | DX: Z12.31 Encounter for screening mammogram for malignant neoplasm of breast (principal) | CPT/HCPCS: 77063; 77067 ==

== ENCOUNTER → 2024-04-03 07:45 | Outpatient (BNV) | payer BC, SELFPAY | PROVIDERS: PCP Internal Medicine; Visit Provider Radiology Diagnostic Radiology | DX: Z12.31 Encounter for screening mammogram for malignant neoplasm of breast (principal) | CPT/HCPCS: 77063; 77067 ==

== ENCOUNTER 2024-06-02 15:32 | Outpatient (AMB) | payer BC, SELFPAY ==
--- NOTE | 2024-06-02 15:35 | AM.OFFWIN_ITS ---
Intake Vital Signs 06/02/24 15:36 Height 5 ft 7 in Weight 172 lb BMI 26.9 BP 124/86 Blood Pressure Location Rt brachial Position Sitting Pulse 77 Pulse Source Pulse Oximeter Temp 97.7 F Temp Source Oral Pulse Oximetry (%) 96 Oxygen Delivery Method Room Air Intake Visit Reasons: EP- UTI, Cloudy, back pain Intake Note: pt c/o leaking urine , discomfort, cloudy urine, back pain. Started a week ago Patient Tobacco Use Status: Never used Tobacco Allergies Sulfa (Sulfonamide Antibiotics) [SULFA (SULFONAMIDE ANTIBIOTICS)] Allergy (Unknown, Verified 06/02/24 15:35) RASH Do you need a note to return to daycare/school/sports/work: No PFSH Medical History Overweight (BMI 25.0-29.9) 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 Acromegaly Vitamin D deficiency Goiter Pure hypercholesterolemia Benign essential hypertension Surgical History Hx of colonoscopy (~03/28/18) Hx of dilation and curettage (~2017) History of tubal ligation History of brain surgery (~2004) Family History Father Renal failure Hypertension Mother Hypertension Social History Housing: House Alcohol intake: never Patient Tobacco Use Status: Never used Tobacco e-Cigarette/Vaping Use: Never Used Second Hand Smoke Exposure: Yes service: No Current occupational status: employed Cognitive needs: No Hearing needs: No Vision needs: Yes (glasses) Female Reproductive History Menstrual Age of Menarche: 11 Physical Exam Vital Signs: Last Vital Signs Temp 97.7 F 06/02/24 15:36 Pulse 77 06/02/24 15:36 BP 124/86 06/02/24 15:36 Pulse Ox 96 06/02/24 15:36 Oxygen Delivery Method Room Air 06/02/24 15:36 BMI result Body Mass Index 26.9 Const General: comfortable and no acute distress Orientation/consciousness: patient oriented x3 General: Yes no CVA tenderness Back/Spine/Pelvis Back: no CVA tenderness Skin General skin exam: no rashes or lesions noted Neuro General: patient oriented x3, gait normal and moves all extremities Psych Speech and movement: Normal speech and movement present Results AMB Urinalysis, Automated UA Leukoctes 500 Chepe/uL Last Edit by Tonny Larry CMA on 06/02/24 15:48 UA Nitrite Negative Last Edit by Tonny Larry CMA on 06/02/24 15:48 UA Urobilinogen 0.2 mg/dL Last Edit by Tonny Larry CMA on 06/02/24 15:48 UA Protein 0 mg/dL Last Edit by Tonny Larry CMA on 06/02/24 15:48 UA pH 6.5 Last Edit by Tonny Larry CMA on 06/02/24 15:48 UA Blood 0 Junior/uL Last Edit by Tonny Larry CMA on 06/02/24 15:48 UA Specific [place] 1.005 Last Edit by Tonny Larry CMA on 06/02/24 15:48 UA Ketone Negative Last Edit by Tonny Larry CMA on 06/02/24 15:48 UA Bilirubin 0 mg/dL Last Edit by Tonny Larry CMA on 06/02/24 15:48 UA Glucose 0 mg/dL Last Edit by Tonny Larry CMA on 06/02/24 15:48 Results Reviewed Results Reviewed: Laboratory Last Values Urine pH (Auto) 6.5 06/02/24 15:47 Specific [place] (Auto) 1.005 06/02/24 15:47 Urine Protein (Auto) 0 mg/dL 06/02/24 15:47 Glucose (UA)(Auto) 0 mg/dL 06/02/24 15:47 Urine Ketones (Auto) Negative 06/02/24 15:47 Urine Blood (Auto) 0 Junior/uL 06/02/24 15:47 Urine Nitrite (Auto) Negative 06/02/24 15:47 Urine Bilirubin (Auto) 0 mg/dL 06/02/24 15:47 Urine Urobilinogen (Auto) 0.2 mg/dL 06/02/24 15:47 Leukocyte Esterase (Auto) 500 Chepe/uL 06/02/24 15:47 Assessment & Plan Assessment & Plan (1) Cystitis: Code(s): N30.90 - Cystitis, unspecified without hematuria Plan: Recurrent Cystititis. last visit in January C&S sensitive to Clinda, erythro and PCN/G. She was last treated with Ciprof back in January. Ordered today Erythromycin for her Pt is Post-menopausal, Advised to f/u with UroGyn for UTI prevention. She does deny Vaginal dryness symptoms. Sent urine C&S per PCP order. Orders: Orders AMB Urinalysis Automated Today Z13.9 - Encounter for screening, unspecified Medications: New erythromycin 500 mg PO Q12H 14 tabs 0RF 7 days N30.90 - Cystitis, unspecified without hematuria Coding Level of Care Code Est Pt Level 3 (22595) Diagnoses Cystitis N30.90 Time Spent (min) 15
[2024-06-02 15:36] VITALS: BP 124/86; PULSE 77; TEMP 36.5; O2SAT 96; BMI 26.9
== END 2024-06-02 16:21 | disposition home or self-care (01) ==
PROVIDERS: PCP Internal Medicine; Visit Provider Nurse Practitioner Family
DX: N30.90 Cystitis, unspecified without hematuria (principal); Z13.9 Encounter for screening, unspecified
CPT/HCPCS: 81003; 99213

== ENCOUNTER 2024-06-03 11:10 | Outpatient (REF) | payer BC, SELFPAY ==
[2024-06-03 11:16] LABS: Appearance Urine Clear; Color Urine Yellow; Glucose Urine UA Negative (Negative); Leukocyte Esterase Urine Large (3+) (Negative); Nitrite Urine Negative (Negative); Specific Gravity - Urine <= 1.005 (1.005-1.025); UMIC TRIGGER UACC YES; Urine Blood Negative (Negative); Urine Ketones Negative (Negative); Urine Protein Negative (Neg-Trace)
[2024-06-03 11:19] LABS: Bacteria Urine 4+ (None Seen); Hyaline Casts Urine 0-2 /LPF (0-2); RBC Urine 0-2 /HPF (0-2); Squamous Epithelial Cell Urine 0-2 /HPF (0-2); UACC Culture Trigger YES
== END 2024-06-03 11:11 | disposition home or self-care (01) ==
LOC: HO.LNP 11:10
PROVIDERS: Visit Provider Internal Medicine
DX: R39.9 Unspecified symptoms and signs involving the genitourinary system (principal); R82.79 Other abnormal findings on microbiological examination of urine
CPT/HCPCS: 81001; 87086; 87088; 87186

== ENCOUNTER 2024-09-11 07:57 | Outpatient (REF) | payer BC, SELFPAY ==
[2024-09-11 11:00] LABS: Alanine Aminotransferase 20 U/L (0-31); Albumin Level 4.2 g/dL (3.5-5.0); Alkaline Phosphatase 82 U/L (39-117); Anion Gap 9 (12-20); Aspartate Amino Transferase 22 U/L (5-31); Bilirubin Total 0.9 mg/dL (0.0-1.0); Blood Urea Nitrogen 10 mg/dL (9-16); Calcium 9.5 mg/dL (8.4-10.2); Carbon Dioxide 27 mmol/L (22-29); Chloride 104 mmol/L (96-108); Cholesterol 212 mg/dL (<200); Estimated Glomerular Filt Rate > 60; Glucose Fasting 102 mg/dL (60-99); HDL Cholesterol 61 mg/dL (>40); LDL Cholesterol Calculated 129 mg/dL (<100); Potassium 3.7 mmol/L (3.3-5.1); Sodium 136 mmol/L (135-145); Total Protein 7.3 g/dL (6.5-8.0); Triglycerides 110 mg/dL (<150)
== END 2024-09-11 07:58 | disposition home or self-care (01) ==
LOC: HO.HMGCLDS 07:57
PROVIDERS: PCP Internal Medicine; Visit Provider Internal Medicine
DX: E78.00 Pure hypercholesterolemia, unspecified (principal)
CPT/HCPCS: 36415; 80053; 80061

== ENCOUNTER 2024-09-20 08:51 | Outpatient (AMB) | payer BC, SELFPAY ==
[2024-09-20 09:02] VITALS: BP 126/74; PULSE 88; O2SAT 98; BMI 27.1
--- NOTE | 2024-09-20 09:02 | A.OFFPC_ITS ---
Vital Signs 09/20/24 09:02 Height 5 ft 7 in Weight 173 lb BMI 27.1 BP 126/74 Blood Pressure Location Lt brachial Position Sitting Pulse 88 Pulse Source Pulse Oximeter Pulse Oximetry (%) 98 Oxygen Delivery Method Room Air Intake Visit Reasons: HTN, Acromegaly, Goiter Communication Specialist Required: No Accompanied by: Self / Same As Patient Allergies Sulfa (Sulfonamide Antibiotics) [SULFA (SULFONAMIDE ANTIBIOTICS)] Allergy (Unknown, Verified 09/20/24 09:12) RASH Medication List - Last Reconciled 09/20/24 by Timbo Cardona MD amlodipine 5 mg PO DAILY 90 days cholecalciferol (vitamin D3) 25 mcg PO DAILY minoxidil 1.25 mg PO DAILY Tobacco use date assessed: 09/20/24 Dental Screening Dental Screen Date: 09/20/24 Did you have a dental visit in the last 12 months?: Yes Did you have a dental problem in the last 6 months where you did not have access to dental care?: No Was dental information given to patient?: Patient has dentist HPI HTN, Acromegaly, Goiter HPI Details Patient comes in today for her follow up visit States that she feels okay She denies any headaches or dizziness Denies any chest pains, no SOB No nausea/vomiting, no abdominal pain No change in bowel habits noted She had her follow up labs done last week - to discuss her results [facility] Medical History Overweight (BMI 25.0-29.9) 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 Acromegaly Vitamin D deficiency Goiter Pure hypercholesterolemia Benign essential hypertension Surgical History Hx of colonoscopy (~03/28/18) Hx of dilation and curettage (~2017) History of tubal ligation History of brain surgery (~2004) Family History Father Renal failure Hypertension Mother Hypertension Social History Housing: House Alcohol intake: never Patient Tobacco Use Status: Never used Tobacco e-Cigarette/Vaping Use: Never Used Second Hand Smoke Exposure: Yes service: No Current occupational status: employed Cognitive needs: No Hearing needs: No Vision needs: Yes (glasses) Female Reproductive History Menstrual Age of Menarche: 11 Questionnaire PHQ-9 Over the last 2 weeks, how often have you been bothered by any of the following problems? 1. Little interest or pleasure in doing things: not at all 2. Feeling down, depressed, or hopeless: not at all 3. Trouble falling or staying asleep, or sleeping too much: not at all 4. Feeling tired or having little energy: not at all 5. Poor appetite or overeating: not at all 6. Feeling bad about yourself - or that you are a failure or have let yourself or your family down: not at all 7. Trouble concentrating on things, such as reading the newspaper or watching television: not at all 8. Moving or speaking so slowly that other people could have noticed. Or the opposite - being so fidgety or restless that you have been moving around a lot more than usual: not at all 9. Thoughts that you would be better off or of hurting yourself in some way: not at all Total score: 0 Depression Screening Interpretation: Negative Depression Screening Done: Yes 71012 - PHQ-9 Billing: Yes Source: Developed by Drs. Jim Gil, Riddhi Hayward, Lamont Ramirez and colleagues, with an educational mamadou from [employer]. Thrive Questionnaire Date Thrive assessed: 09/20/24 I am a: Patient What is your living situation today?: I have a steady place to live Within the past 12 months, did the food you bought not last and you didn't have the money to get more?: Never true Within the past 12 months, did you worry whether your food would run out before you got money to buy more?: Never true Do you have trouble paying for medicines?: No Do you have trouble getting transportation to medical appointments?: No Do you have trouble paying your heating and electricity bill?: No Do you have trouble taking care of your child, family member or friend?: No Do you have trouble with day-to-day activities such as bathing, preparing meals, shopping, managing finances, etc.?: No Are you currently unemployed and looking for a job?: No Are you interested in more education?: No Please select the resources that you would like help with: None Currently or been in a relationship where the following occur: No concerns reported THRIVE Score: 0 AUDIT C Alcohol Use Questionnaire (AUDIT-C) 1. How often do you have a drink containing alcohol?: Never 3. How often do you have six or more drinks on one occasion?: Never Total Score: 0 Score Reviewed/Action Taken: Yes JOON-7 AMB Questionnaire JOON-7 Date JOON - 7 assessed: 09/20/24 Feeling nervous, anxious, or on edge: 0 = Not at all Not being able to stop or control worryin = Not at all Worrying too much about different things: 0 = Not at all Trouble relaxin = Not at all Being so restless that it is hard to sit still: 0 = Not at all Becoming easily annoyed or irritable: 0 = Not at all Feeling afraid as if something awful might happen: 0 = Not at all Total JOON-7 score (0-4 normal; 5-9 mild; 10-14 moderate; 15-21 severe): 0 Source: Developed by Drs. Jim Gil, Riddhi Hayward, Lamont Ramirez and colleagues, with an educational mamadou from [employer]. Review of Systems Const Denies chills, Denies fatigue, Denies fever(s) and Denies headache(s) ENT Denies dysphagia, Denies dizziness, Denies otalgia, Denies headache(s), Denies neck pain, Denies odynophagia, Denies tinnitus and Denies sore throat Card Denies chest pain, Denies palpitations and Denies dyspnea Resp Denies chest congestion, Denies cough and Denies dyspnea GI Denies abdominal pain, Denies constipation, Denies dysphagia, Denies heartburn, Denies diarrhea, Denies nausea, Denies odynophagia and Denies vomiting Denies difficulty voiding, Denies nocturia, Denies dysuria and Denies urinary urgency Musc Denies back pain and Denies neck pain Skin/Breast Denies rash Neuro Denies dizziness and Denies headache(s) Endo Denies fatigue and Denies palpitations Physical exam (Primary Care) Vital Signs: Last Vital Signs Pulse 88 09/20/24 09:02 BP 126/74 09/20/24 09:02 Pulse Ox 98 09/20/24 09:02 Oxygen Delivery Method Room Air 09/20/24 09:02 BMI result Body Mass Index 27.1 Tobacco/Smoking Status: Tobacco use Status Tobacco use date assessed 09/20/24 09/20/24 09:07 Patient Tobacco Use Status Never used Tobacco 09/20/24 09:07 e-Cigarette/Vaping Use Never Used 09/20/24 09:07 PHQ-9: PHQ-9 Score PHQ-9: Total score 0 09/20/24 09:07 Depression Screening Interpretation: Negative Thrive Assessment: Date of Thrive Assessment Date Thrive assessed 09/20/24 09/20/24 09:07 Currently or been in a relationship where the following occur: No concerns reported Const General: no acute distress and alert HENMT Ears: TM's normal bilaterally and EAC's normal Throat: Yes posterior oropharynx normal and Yes tonsils normal (no TP congestion) Neck Neck: Yes no lymphadenopathy and Yes supple Thyroid: solitary palpable nodule on the right soft; nontender Resp Auscultation: clear to auscultation bilaterally, no rales and no wheezes Cardio Rate: regular rate Rhythm: regular rhythm Heart sounds: Murmur heart sound present systolic soft, II/ and at the apex GI Palpation (GI): Soft to palpation and nontender Auscultation: normal bowel sounds General: Yes no CVA tenderness Back/Spine/Pelvis Back: no CVA tenderness Thoracic/Lumbar Spine: thoracic and lumbar spine normal to inspection Skin Rashes: no rashes Extrem General: Yes no clubbing, cyanosis or edema Results Reviewed Results Reviewed: Laboratory Tests 09/11/24 08:11 Sodium 136 Potassium 3.7 Creatinine 0.82 Estimated GFR > 60 Fasting Glucose 102 H Calcium 9.5 AST 22 ALT 20 Triglycerides 110 Cholesterol 212 H LDL Cholesterol, Calc 129 H HDL Cholesterol 61 Coding Level of Care Code Est Pt Level 4 (18130) Diagnoses Benign essential hypertension I10 Pure hypercholesterolemia E78.00 Cardiac murmur R01.1 Goiter E04.9 Osteopenia of neck of femur, unspecified laterality M85.859 Laterality: unspecified laterality Vitamin D deficiency E55.9 Acromegaly E22.0 Chronic leukopenia D72.819 Overweight (BMI 25.0-29.9) E66.3 Additional Codes PHQ-9 - 43043 - PHQ-9 Billing: Yes ([id number]) Assessment & Plan Assessment & Plan (1) Benign essential hypertension: Code(s): I10 - Essential (primary) hypertension Category: Medical Plan: Reinforced low-sodium diet - goal is systolic BP of 120 to 130 mm or less Her blood pressure currently appears much better controlled Continue Amlodipine 5 mg QD She is reminded to continue monitoring her BP regularly (2) Pure hypercholesterolemia: Code(s): E78.00 - Pure hypercholesterolemia, unspecified Category: Medical Plan: Results of her labs done last week reviewed and discussed with patient - she is advised that her cholesterol numbers, especially her LDL cholesterol, have improved slightly from previous Reinforced low cholesterol diet She continues to decline pharmacotherapy for her high cholesterol Will recheck her fasting lipids and labs in 6 months for follow-up (3) Cardiac murmur: Code(s): R01.1 - Cardiac murmur, unspecified Category: Medical Plan: This is most likely a flow murmur due to her thin body habitus and the proximity of her heart to her chest wall Echocardiogram done back in March 2023 came out completely normal, with no valvular abnormalities noted (4) Goiter: Comment: S/P left thyroid lobectomy on 06/28/2017 Code(s): E04.9 - Nontoxic goiter, unspecified Category: Medical Plan: Thyroid US done in June 2022 revealed (+) multiple thyroid nodules, with the right upper / midpole nodules having increased in size and TI-RADS category. Continued follow-up recommended She underwent FNA Bx back in May 2023 - pathology came back benign but she was advised by Dr. King at her last appointment with him to get a second opinion regarding this - she was referred to endocrinology in [place], [place] for a second opinion She was seen by Dr. Altaorre last April 2024 and underwent repeat US-guided Bx, which came back benign again She has been advised to just continue following up with Dr. King but she has not yet scheduled an appointment with him and is encouraged to do so MARANDA (5) Osteopenia of neck of femur: Code(s): M85.859 - Other specified disorders of bone density and structure, unspecified thigh Category: Medical Qualifiers: Laterality: unspecified laterality Qualified Code(s): M85.859 - Other specified disorders of bone density and structure, unspecified thigh Plan: Repeat BMD done on 01/02/2022 revealed (+) 7.9% decline in BMD in the left femur compared to her previous BMD on 10/31/2019; AP spine BMD was mostly unchanged Will continue to monitor her BMD regularly every 2 to 3 years - will order her follow up BMD when she returns in 6 months for her next annual PE in March 2025 Patient is again encouraged to stay active and exercise regularly and continue taking her OTC Calcium and Vitamin D supplements daily (6) Vitamin D deficiency: Code(s): E55.9 - Vitamin D deficiency, unspecified Category: Medical Plan: Continue Vitamin D3 2000 units QD (7) Acromegaly: Comment: (+) history of acromegaly, status post transsphenoidal resection. 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 She was advised that unless her WBC count drop below 2.0, she should not require any intervention and will just need to continue monitoring her CBC and observing patient closely (9) Overweight (BMI 25.0-29.9): Code(s): E66.3 - Overweight Category: Medical Plan: Reinforced diet/exercise as tolerated/lose weight Plan To return as scheduled in March 2025 for her next annual physical examination Orders: Orders Free T4 (Free Thyroxine) 03/18/25 E03.9 - Hypothyroidism, unspecified Thyroid Stimulating Hormone 03/18/25 E03.9 - Hypothyroidism, unspecified Lipid Panel 03/18/25 E78.00 - Pure hypercholesterolemia, unspecified Vitamin D 25-OH Total 03/18/25 E55.9 - Vitamin D deficiency, unspecified Hemoglobin A1c 03/18/25 R73.9 - Hyperglycemia, unspecified Complete Blood Count Auto Diff 03/18/25 D64.9 - Anemia, unspecified Comprehensive [place]. Panel Fast 03/18/25 E78.00 - Pure hypercholesterolemia, unspecified UA CC w/rflx Micro + Cult 03/18/25 R30.0 - Dysuria
--- OUTSIDE RECORDS SUMMARY | 2024-09-26 16:37 | XMS_ITS ---
Author Name [facility] Organization Unknown History of Medication Use Medication Directions Dispensed Refills Start Date End Date Stat us minoxidil (LONITEN) 2.5 MG tablet Take 1 tablet (2.5 mg total) by mouth daily. 05/05/2024 active amLODIPine (NORVASC) tablet 5 mg Take 1 tablet (5 mg total) by mouth daily. 05/05/2024 active Problems Problem Status Onset Date Problem Type Date of Resoluti on Source Nodular goiter active EncounterDiagnosisAct CTTHSFRAN
== END 2024-09-20 09:28 | disposition home or self-care (01) ==
PROVIDERS: PCP Internal Medicine; Visit Provider Internal Medicine
DX: I10 Essential (primary) hypertension (principal); E22.0 Acromegaly and pituitary gigantism; E78.00 Pure hypercholesterolemia, unspecified; R01.1 Cardiac murmur, unspecified; E04.9 Nontoxic goiter, unspecified; M85.859 Other specified disorders of bone density and structure, unspecified thigh; E55.9 Vitamin D deficiency, unspecified; D72.819 Decreased white blood cell count, unspecified; E66.3 Overweight

== ENCOUNTER → 2024-09-20 08:51 | Outpatient (BNVA) | payer BC, SELFPAY | PROVIDERS: PCP Internal Medicine; Visit Provider Internal Medicine | DX: I10 Essential (primary) hypertension (principal); E78.00 Pure hypercholesterolemia, unspecified; R01.1 Cardiac murmur, unspecified; E04.9 Nontoxic goiter, unspecified; M85.859 Other specified disorders of bone density and structure, unspecified thigh; E55.9 Vitamin D deficiency, unspecified; E22.0 Acromegaly and pituitary gigantism; D72.819 Decreased white blood cell count, unspecified; E66.3 Overweight; Z79.899 Other long term (current) drug therapy | CPT/HCPCS: 96127 ==

== ENCOUNTER 2024-12-25 07:59 | Outpatient (AMB) | payer BC, SELFPAY ==
--- NOTE | 2024-12-25 08:01 | MHC.OFFVIS ---
Vital Signs 12/25/24 08:02 Height 5 ft 7 in Weight 173 lb 11.588 oz BMI 27.2 BP 130/78 Blood Pressure Location Rt brachial Position Sitting Pulse 80 Pulse Source Pulse Oximeter Pulse Oximetry (%) 100 Oxygen Delivery Method Room Air Intake Visit Reasons: NMG f/u Intake Note: Patient last seen on 07/2023 present today for MNG f/u. Customer Support Engineer Required: No Accompanied by: Self / Same As Patient Allergies Sulfa (Sulfonamide Antibiotics) [SULFA (SULFONAMIDE ANTIBIOTICS)] Allergy (Unknown, Verified 12/25/24 08:03) RASH Medication List - Last Reconciled 12/25/24 by Jim King MD amlodipine 5 mg PO DAILY 90 days cholecalciferol (vitamin D3) 25 mcg PO DAILY minoxidil 1.25 mg PO DAILY HPI Comments Details: This is a 54-year-old black female followed by myself previously for acromegaly status post transsphenoidal resection with persistent slightly elevated IGF-1 level but normal growth a month suppression test. She also has a goiter underwent left lobectomy. Right lobe had thyroid nodules well. She is status post FNA with cytology A. Thyroid, right mid pole, fine needle aspiration: Benign ([place] category II). COMMENT: Review of the cytology preparation demonstrates a cellular specimen composed of groups of benign-appearing follicular cells, oncocytes/Hurthle cells and histiocytes, consistent with a benign follicular nodule. The cell block is acellular. B. Thyroid, right upper pole, fine needle aspiration: Non-diagnostic ([place] category I). COMMENT: The specimen is processed and examined, but non-diagnostic due to insufficient follicular cell cellularity. The cell block shows scant material. A repeat aspiration may be considered She is s/p FNA of right thyroid nodule by Dr. Alatorre at [place] in 04/2024. She denies any obstructive symptoms. Pt states biopsy was benign No ac romegaic sx. [facility] Medical History Overweight (BMI 25.0-29.9) 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 Acromegaly Vitamin D deficiency Goiter Pure hypercholesterolemia Benign essential hypertension Surgical History Hx of colonoscopy (~03/28/18) Hx of dilation and curettage (~2017) History of tubal ligation History of brain surgery (~2004) Family History Father Renal failure Hypertension Mother Hypertension Social History Housing: House Alcohol intake: never Patient Tobacco Use Status: Never used Tobacco e-Cigarette/Vaping Use: Never Used Second Hand Smoke Exposure: Yes service: No Current occupational status: employed Cognitive needs: No Hearing needs: No Vision needs: Yes (glasses) Female Reproductive History Menstrual Age of Menarche: 11 Physical Exam Vital Signs: Last Vital Signs Pulse 80 12/25/24 08:02 BP 130/78 12/25/24 08:02 Pulse Ox 100 12/25/24 08:02 Oxygen Delivery Method Room Air 12/25/24 08:02 BMI result Body Mass Index 27.2 Const Other: Acromegalic features present. There is a scar status post left lobectomy. Right lobe is without the presence of any palpable Assessment & Plan Assessment & Plan (1) Acromegaly: Comment: (+) history of acromegaly, status post transsphenoidal resection. 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 she has had previously normal IGF-1 levels plan is to recheck an IGF-1 (2) Goiter: Comment: S/P left thyroid lobectomy on 06/28/2017 Code(s): E04.9 - Nontoxic goiter, unspecified Category: Medical Plan: Status post FNA of right upper and midpole nodule with midpole nodule being benign and right upper pole nodule being non diagnostic. she underwent a repeat FNA by Dr. Alatorre at [place] . [facility] check TSH and free T4 .We will try to obtain cytology from [place] from reasration. Will have patient follow up with Dr. 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
[2024-12-25 08:02] VITALS: BP 130/78; PULSE 80; O2SAT 100; BMI 27.2
--- OUTSIDE RECORDS SUMMARY | 2024-12-25 08:03 | XMS_ITS | Clinical Summary ---
Author Organization [facility] Address [address] [place] [address] Care Team Providers Care Multimedia Services Coordinator Name Role Phone Timbo Cardona MD Primary Care Provider [phone] Medications Medication Sig Dispensed Refills Start Date End Date Status amLODIPine (NORVASC) tablet 5 mg Take 1 tablet (5 mg total) by mouth daily. 0 Active minoxidil (LONITEN) 2.5 MG tablet Take 1 tablet (2.5 mg total) by mouth daily. 0 Active Social History Tobacco Use Types Packs/Day Years Used Date Smoking Tobacco: Never Assessed Sex and Gender Information Value Date Recorded Sex Assigned at Female 08/12/2023 5:21 PM EDT Gender Identity Not on file Sexual Orientation Not on file Last Filed Vital Signs Vital Sign Reading Time Taken Comments Blood Pressure 153/94 05/02/2024 8:21 AM EDT Pulse 74 05/02/2024 8:21 AM EDT Temperature - - Respiratory Rate - - Oxygen Saturation - - Inhaled Oxygen Concentration - - Weight 79.3 kg (174 lb 12.8 oz) 05/02/2024 8:21 AM EDT Height - - Body Mass Index - - Plan of Treatment Health Maintenance Due Date Last Done Comments Hepatitis B Vaccines (1 of 3 - 3-dose series) 1968 Hepatitis C Screening 1968 COVID-19 Vaccine (#1) 1968 Depression Screening 1980 Preventative Health Evaluation 1986 DTap / Tdap / Td (1 - Tdap) 1987 Cervical Cancer Screening (P ap Smear) 1989 Colon Cancer Screening (Colonoscopy) 2013 Breast Cancer Screening (Mammogram) 2018 Shingrix-Zoster Vaccine (1 of 2) 2018 Influenza Vaccine (#1) 2024 Pneumococcal Vaccine Aged Out No long er eligible based on patient's age to complete this topic RSV Ped < 20 months Aged Out No longe r eligible based on patient's age to complete this topic Care Teams Multimedia Services Coordinator Relationship Specialty Start Date End Date Timbo Cardona MD [address] [place] [address] [place] [id number] PCP - General Internal Medicine 08/12/23
--- OUTSIDE RECORDS SUMMARY | 2024-12-25 08:03 | XMS_ITS | Clinical Summary ---
Author Organization [facility] Address [address] [place] [address] Care Team Providers Care Wire Drawing Setter Name Role Phone Timbo Cardona MD Primary Care Provider + [phone] Social History Tobacco Use Types Packs/Day Years Used Date Smoking Tobacco: Never Assessed Comments Unknown Sex and Gender Information Value Date Recorded Sex Assigned at Not on file Legal Sex Female 8:12 PM EST Gender Identity Not on file Sexual Orientation Not on file Last Filed Vital Signs Vital Sign Reading Time Taken Comments Blood Pressure 153/94 05/02/2024 8:21 AM EDT Sitting Left arm Pulse 74 05/02/2024 8:21 AM EDT Temperature - - Respiratory Rate - - Oxygen Saturation - - Inhaled Oxygen Concentration - - Weight 79.3 kg (174 lb 12.8 oz) 05/02/2024 8:21 AM EDT Height - - Body Mass Index - - Plan of Treatment Health Maintenance Due Date Last Done Comments Breast Cancer Screening 1968 DTaP,Tdap,and Td Vaccines (1 - Tdap) 1987 Hepatitis B Vaccines (1 of 3 - 19+ 3-dose series) 1987 Cervical Cancer Screening: P ap Smear 1989 Pneumococcal Vaccine: 50+ Ye ars (1 of 1 - PCV) 2018 Zoster Vaccines (1 of 2) 2018 Colorectal Cancer Screening: Colonoscopy 11/11/2023 Depression Screening 11/11/2023 HIV Screening 11/11/2023 Hepatitis C Screening 11/11/2023 Social Influencers of Health Screening 11/11/2023 COVID-19 Vaccine ( - 2023-2 5 season) 2024 Influenza Vaccine (#1) 2024 HIB Vaccines Aged Out No longer eligi ble based on patient's age to complete this topic HPV Vaccines Aged Out No longer eligi ble based on patient's age to complete this topic Hepatitis A Vaccines Aged Out No long er eligible based on patient's age to complete this topic IPV Vaccines Aged Out No longer eligi ble based on patient's age to complete this topic MMR Vaccines Aged Out No longer eligi ble based on patient's age to complete this topic Meningococcal ACWY Vaccine Aged Out N o longer eligible based on patient's age to complete this topic Meningococcal B Vacine Aged Out No lo nger eligible based on patient's age to complete this topic Pneumococcal Vaccine: Pediat rics (0 to 5 Years) and At-Risk Patients (6 to 64 Years) Aged Out No longer eligible b ased on patient's age to complete this topic RSV Immunization Patients Un peng 20 months Aged Out No longer eligible b ased on patient's age to complete this topic Varicella Vaccines Aged Out No longer eligible based on patient's age to complete this topic Care Teams Wire Drawing Setter Relationship Specialty Start Date End Date Timbo Cardona MD [address] [place] [address] Dr [address] [place] PCP - General 08/12/23
== END 2024-12-25 08:27 | disposition home or self-care (01) ==
PROVIDERS: PCP Internal Medicine; Visit Provider Internal Medicine Endocrinology, Diabetes & Metabolism
DX: E22.0 Acromegaly and pituitary gigantism (principal); E04.9 Nontoxic goiter, unspecified
CPT/HCPCS: 99213

== ENCOUNTER → 2024-12-25 07:59 | Outpatient (BNVA) | payer BC, SELFPAY | PROVIDERS: PCP Internal Medicine; Visit Provider Internal Medicine Endocrinology, Diabetes & Metabolism ==

== ENCOUNTER 2024-12-25 08:31 | Outpatient (REF) | payer BC, SELFPAY ==
--- OUTSIDE RECORDS SUMMARY | 2024-12-25 08:50 | XMS_ITS | Clinical Summary ---
Author Organization [facility] Address [address] [place] [address] Care Team Providers Care Janitorial Supervisor Name Role Phone Timbo Cardona MD Primary Care Provider + [phone] Social History Tobacco Use Types Packs/Day Years [...] age to complete this topic Care Teams Janitorial Supervisor Relationship Specialty Start Date End Date Timbo Cardona MD [address] [place] [address] Dr [address] [place] PCP - General 08/12/23
--- OUTSIDE RECORDS SUMMARY | 2024-12-25 08:50 | XMS_ITS | Clinical Summary ---
Author Organization [facility] Address [address] [place] [address] Care Team Providers Care Final Assembly Inspector Name Role Phone Timbo Cardona MD Primary Care Provider +[phone] Medications Medication Sig Dispensed Refills Start Date [...] age to complete this topic Care Teams Final Assembly Inspector Relationship Specialty Start Date End Date Timbo Cardona MD [address] [place] [address] [place] [address] PCP - General Internal Medicine 08/12/23
[2024-12-25 11:04] LABS: Free T4 (Free Thyroxine) 1.01 ng/dL (0.71-1.85); Thyroid Stimulating Hormone 1.18 uIU/mL (0.32-4.0)
[2024-12-31 13:38] LABS: IGF-1 (Somatomedin C) 236 ng/mL (50-317); IGF-1 Z Score (Female) 1.2 SD (-2.0 - +2.0)
== END 2024-12-25 08:32 | disposition home or self-care (01) ==
LOC: HO.10HDL 08:31
PROVIDERS: Visit Provider Internal Medicine Endocrinology, Diabetes & Metabolism
DX: E04.9 Nontoxic goiter, unspecified (principal); E22.0 Acromegaly and pituitary gigantism
CPT/HCPCS: 36415; 84305; 84439; 84443

== ENCOUNTER 2025-04-12 07:24 | Outpatient (REF) | payer BC, SELFPAY | END 2025-04-12 07:25 | disposition home or self-care (01) | LOC: HO.MAMMO 07:24 | PROVIDERS: PCP Internal Medicine; Visit Provider Internal Medicine | DX: Z12.31 Encounter for screening mammogram for malignant neoplasm of breast (principal) | CPT/HCPCS: 77063; 77067 ==

== ENCOUNTER → 2025-04-12 07:30 | Outpatient (BNV) | payer BC, SELFPAY | PROVIDERS: PCP Internal Medicine; Visit Provider Internal Medicine | DX: Z12.31 Encounter for screening mammogram for malignant neoplasm of breast (principal) | CPT/HCPCS: 77063; 77067 ==

== ENCOUNTER 2025-05-07 07:13 | Outpatient (REF) | payer BC, SELFPAY ==
--- OUTSIDE RECORDS SUMMARY | 2025-05-07 07:16 | XMS_ITS ---
Author Name [facility] Organization Unknown Problems Problem Status Onset Date Problem Type Date of Resoluti on Source Nodular goiter active EncounterDiagnosisAct CTTHSFRAN Encounters Encounter Type Encounter Reason Primary Diagnosis Location Date Ambulatory Nontoxic goiter, unspecified Nontoxic goiter, unspecified [place] 05/02/2024 Ambulatory Nontoxic goiter, unspecified Nontoxic goiter, unspecified [place] 05/02/2024 Care Team Organization Name Specialty Phone Email Start Date End [facility] 05/06/2024 [facility] 05/05/2024 05/01/2025
--- OUTSIDE RECORDS SUMMARY | 2025-05-07 07:16 | XMS_ITS | Clinical Summary ---
Author Organization [facility] Address [address] [place] [address] Care Team Providers Care Plumber Apprentice Name Role Phone Timbo Cardona MD Primary Care Provider + [phone] Social History Tobacco Use Types Packs/Day Years [...] 2) 2018 Colorectal Cancer Screening: Colonoscopy 11/11/2023 HIV Screening 11/11/2023 Hepatitis C Screening 11/11/2023 Social Influencers of Health Screening 11/11/2023 COVID-19 Vaccine ( - 2023-2 5 season) 2024 Depression Screening 10/18/2024 Influenza Vaccine (#1) 2025 HIB Vaccines Aged Out No longer eligi [...] age to complete this topic Meningococcal B Vaccine Aged Out No l onger eligible based on patient's age to complete this topic RSV Immunization Patients Un peng 20 months Aged Out No longer eligible b ased on patient's age to complete this topic Varicella Vaccines Aged Out No longer eligible based on patient's age to complete this topic Care Teams Plumber Apprentice Relationship Specialty Start Date End Date Timbo Cardona MD [address] [place] [address] Dr [address] [place] PCP - General 08/12/23
[2025-05-07 10:05] LABS: MANUAL DIFF FLAG NO
[2025-05-07 10:19] LABS: Hematocrit 39.3 % (37.0-47.0); Hemoglobin 12.6 g/dl (12.0-16.0); Imm Gran Abs Auto 0.01 X10*3/uL (0.00-0.03); Imm Gran Pct Auto 0.2 % (0.0-0.4); Lymphocytes Absolute Auto 2.5 X10*3/uL (1.2-4.9); Mean Corpuscular HGB Conc 32.1 g/dl (31.0-35.0); Mean Corpuscular Hemoglobin 27.9 pg (27.0-33.0); Mean Corpuscular Volume 86.9 fL (80.0-98.0); NRBC Abs Auto 0.000 X10*3/uL (0.0-0.012); NRBC Pct Auto 0.0 /100WBC (0.0-0.2); Platelet Count 223 X10*3/uL (160-400); Red Blood Count 4.52 X10*6/uL (4.20-5.50); White Blood Count 4.4 X10*3/uL (4.8-10.8)
[2025-05-07 10:29] LABS: Appearance Urine Clear; Glucose Urine UA Negative (Negative); PH 6.5 (5.0-9.0); Specific Gravity - Urine 1.010 (1.005-1.025); UMIC TRIGGER UACC YES
[2025-05-07 10:30] LABS: Hemoglobin A1C 115.1527 umol/L; Total Hemoglobin (HGBA1C) 3286.5844 umol/L
[2025-05-07 10:38] LABS: UACC Culture Trigger YES
[2025-05-07 10:49] LABS: Alanine Aminotransferase 22 U/L (0-31); Albumin Level 4.5 g/dL (3.5-5.0); Alkaline Phosphatase 77 U/L (39-117); Anion Gap 10 (12-20); Aspartate Amino Transferase 23 U/L (5-31); Blood Urea Nitrogen 10 mg/dL (9-16); Calcium 9.2 mg/dL (8.4-10.2); Carbon Dioxide 26 mmol/L (22-29); Chloride 109 mmol/L (96-108); Cholesterol 249 mg/dL (<200); Estimated Glomerular Filt Rate > 60; HDL Cholesterol 68 mg/dL (>40); Potassium 3.6 mmol/L (3.3-5.1); Sodium 141 mmol/L (135-145); Total Protein 7.6 g/dL (6.5-8.0); Triglycerides 100 mg/dL (<150)
[2025-05-07 11:13] LABS: Free T4 (Free Thyroxine) 1.01 ng/dL (0.71-1.85); Thyroid Stimulating Hormone 1.78 uIU/mL (0.32-4.0)
== END 2025-05-07 07:14 | disposition home or self-care (01) ==
LOC: HO.HMGCLDS 07:13
PROVIDERS: PCP Internal Medicine; Visit Provider Internal Medicine
DX: E03.9 Hypothyroidism, unspecified (principal); E78.00 Pure hypercholesterolemia, unspecified; E55.9 Vitamin D deficiency, unspecified; R73.9 Hyperglycemia, unspecified; D64.9 Anemia, unspecified
CPT/HCPCS: 36415; 80053; 80061; 81001; 82306; 83036; 84439; 84443; 85025; 87086

== ENCOUNTER 2025-05-11 08:24 | Outpatient (AMB) | payer BC, SELFPAY ==
--- NOTE | 2025-05-11 08:26 | MHC.PC.OV ---
Vital Signs 05/11/25 08:28 Height 5 ft 7 in Weight 171 lb BMI 26.8 BP 124/68 Blood Pressure Location Lt brachial Position Sitting Pulse 83 Pulse Source Pulse Oximeter Pulse Oximetry (%) 98 Oxygen Delivery Method Room Air Intake Visit Reasons: annual exam Fence Installer Helper Required: No Accompanied by: Self / Same As Patient Allergies Sulfa (Sulfonamide Antibiotics) (SULFA (SULFONAMIDE ANTIBIOTICS)) Allergy (Unknown, Verified 05/11/25 08:40) RASH Medication List - Last Reconciled 05/11/25 by PORTILLO Last amlodipine 5 mg PO DAILY 90 days cholecalciferol (vitamin D3) 25 mcg PO DAILY minoxidil 1.25 mg PO DAILY Tobacco use date assessed: 09/20/24 Dental Screening Dental Screen Date: 05/11/25 Did you have a dental visit in the last 12 months?: Yes Did you have a dental problem in the last 6 months where you did not have access to dental care?: No Was dental information given to patient?: No HPI annual exam HPI Details Dentist:up to date Eye: up to date Snellen: Right: Left: Corrected vision: yes, glasses STI screening: Colonoscopy: 11/2023, repeat in 5 years Pap Smer:appt in July, mammogram: 02/2025 BMD: ordered PHQ-9: Flu:she does to take the flu vaccine COVID: x5 Tdap: done in 2019 Diet:regular diet, will be working on cutting down on high cholesterol foods Exercise: works out every day at home and she walks The patient is a 55-year-old female presenting for a routine physical examination. She has a history of hyperlipidemia, with recent lab results showing an increase in cholesterol levels, attributed to dietary habits, specifically ice cream consumption. The patient is aware of the need to maintain cholesterol levels below 130 mg/dL to avoid medication. The patient has a thyroid nodule on the right side, with the left thyroid previously removed. She is under regular follow-up with Dr. King for this condition, with the next appointment scheduled in July. The patient underwent a colonoscopy in November of the previous year, during which a couple of polyps were removed. She is advised to have a follow-up colonoscopy in five years. The patient engages in daily exercise, including home workouts and walking. [facility] Medical History Overweight (BMI 25.0-29.9) 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 Acromegaly Vitamin D deficiency Goiter Pure hypercholesterolemia Benign essential hypertension Surgical History Hx of colonoscopy (~03/28/18) Hx of dilation and curettage (~2017) History of tubal ligation History of brain surgery (~2004) Family History Father Renal failure Hypertension Mother Hypertension Social History Housing: House Alcohol intake: never Patient Tobacco Use Status: Never used Tobacco e-Cigarette/Vaping Use: Never Used Second Hand Smoke Exposure: Yes service: No Current occupational status: employed Cognitive needs: No Hearing needs: No Vision needs: Yes (glasses) Female Reproductive History Menstrual Age of Menarche: 11 Questionnaire PHQ-9 Over the last 2 weeks, how often have you been bothered by any of the following problems? 1. Little interest or pleasure in doing things: not at all 2. Feeling down, depressed, or hopeless: not at all 3. Trouble falling or staying asleep, or sleeping too much: not at all 4. Feeling tired or having little energy: not at all 5. Poor appetite or overeating: not at all 6. Feeling bad about yourself - or that you are a failure or have let yourself or your family down: not at all 7. Trouble concentrating on things, such as reading the newspaper or watching television: not at all 8. Moving or speaking so slowly that other people could have noticed. Or the opposite - being so fidgety or restless that you have been moving around a lot more than usual: not at all 9. Thoughts that you would be better off or of hurting yourself in some way: not at all Total score: 0 Depression Screening Interpretation: Negative Depression Screening Done: Yes 17289 - PHQ-9 Billing: Yes Source: Developed by Drs. Jim Gil, Riddhi Hayward, Lamont Ramirez and colleagues, with an educational mamadou from [employer]. Thrive Questionnaire Date Thrive assessed: 05/11/25 I am a: Patient What is your living situation today?: I have a steady place to live Within the past 12 months, did the food you bought not last and you didn't have the money to get more?: Never true Within the past 12 months, did you worry whether your food would run out before you got money to buy more?: Never true Do you have trouble paying for medicines?: No Do you have trouble getting transportation to medical appointments?: No Do you have trouble paying your heating and electricity bill?: No Do you have trouble taking care of your child, family member or friend?: No Do you have trouble with day-to-day activities such as bathing, preparing meals, shopping, managing finances, etc.?: No Are you currently unemployed and looking for a job?: No Are you interested in more education?: No Please select the resources that you would like help with: None Currently or been in a relationship where the following occur: No concerns reported THRIVE Score: 0 AUDIT C Alcohol Use Questionnaire (AUDIT-C) 1. How often do you have a drink containing alcohol?: Never Total Score: 0 JOON-7 AMB Questionnaire JOON-7 Date JOON - 7 assessed: 05/11/25 Feeling nervous, anxious, or on edge: 0 = Not at all Not being able to stop or control worryin = Not at all Worrying too much about different things: 0 = Not at all Trouble relaxin = Not at all Being so restless that it is hard to sit still: 0 = Not at all Becoming easily annoyed or irritable: 0 = Not at all Feeling afraid as if something awful might happen: 0 = Not at all Total JOON-7 score (0-4 normal; 5-9 mild; 10-14 moderate; 15-21 severe): 0 Source: Developed by Drs. Jim Gil, Riddhi Hayward, Lamont Ramirez and colleagues, with an educational mamadou from [employer]. JOON-7 Assessment Billing JOON-7 Assessment Tool: JOON-7 Assessment 72254 Review of Systems Const Denies headache(s) Eyes Denies loss of vision ENT Denies vertigo, Denies dizziness, Denies headache(s) and Denies sore throat Card Denies chest pain, Denies leg edema and Denies lightheadedness Resp Denies cough, Denies hemoptysis and Denies wheezing GI Denies abdominal pain, Denies melena, Denies constipation, Denies diarrhea and Denies vomiting Denies urinary frequency, Denies dysuria and Denies urinary urgency Musc Denies arthralgias, Denies joint swelling, Denies numbness and Denies tingling Neuro Denies Abnormal speech present, Denies behavioral changes, Denies vertigo, Denies dizziness, Denies headache(s), Denies loss of vision, Denies memory loss, Denies numbness and Denies tingling Psych Denies anxiety, Denies behavioral changes, Denies depression, Denies memory loss and Denies panic attacks Oscar/Lymph Denies easy bleeding and Denies easy bruising Aller/Immun Denies wheezing Physical exam (Primary Care) Vital Signs: Last Vital Signs Pulse 83 05/11/25 08:28 BP 124/68 05/11/25 08:28 Pulse Ox 98 05/11/25 08:28 Oxygen Delivery Method Room Air 05/11/25 08:28 BMI result Body Mass Index 26.8 Tobacco/Smoking Status: Tobacco use Status Tobacco use date assessed 09/20/24 05/11/25 08:32 Patient Tobacco Use Status Never used Tobacco 05/11/25 08:32 e-Cigarette/Vaping Use Never Used 05/11/25 08:32 PHQ-9: PHQ-9 Score PHQ-9: Total score 0 05/11/25 09:13 Depression Screening Interpretation: Negative Thrive Assessment: Date of Thrive Assessment Date Thrive assessed 05/11/25 05/11/25 08:32 Currently or been in a relationship where the following occur: No concerns reported Const General: healthy appearing, no acute distress, alert and awake Nutritional Appearance: well nourished Orientation/consciousness: oriented to person, oriented to place and oriented to time HENMT Ears: TM's normal bilaterally General nose exam: Normal nasal mucous membranes and turbinates present Eyes Conjunctivae: conjunctivae normal Sclerae: sclerae normal Pupils: Equal, round and reactive pupils present Neck Neck: Yes no lymphadenopathy, Yes supple and Yes no JVD Thyroid: solitary palpable nodule on the right Carotids: no bruits Resp Effort & Inspection: normal respiratory effort and not tachypneic Auscultation: no crackles, no rales, no rhonchi and no wheezes Cardio Rate: regular rate Rhythm: regular rhythm Heart sounds: S1 normal heart sound present, S2 normal heart sound present, Murmur heart sound present systolic soft, II/ and at the apex and normal S1 and S2 GI Palpation (GI): Soft to palpation, nontender, no hepatomegaly and no splenomegaly Auscultation: normal bowel sounds Skin General skin exam: no rashes or lesions noted and dry skin Neuro General: oriented to person, oriented to place and oriented to time Cranial nerves: Yes Equal, round and reactive pupils present Speech: No Abnormal speech present Gait exam (Neuro): Normal gait present Motor exam (neuro): no tremor noted Extrem Right upper extremity: full ROM Left upper extremity: full ROM Right lower extremity: full ROM; no edema Left lower extremity: full ROM; no edema Psych Mental Status: mental status grossly normal Speech and movement: Normal speech and movement present Affect: normal affect Attitude: cooperative Thought process: Normal thought process present Results Reviewed Results Reviewed: Laboratory Tests 05/07/25 05/07/25 07:20 07:25 WBC 4.4 L RBC 4.52 Hgb 12.6 Hct 39.3 MCV 86.9 MCH 27.9 MCHC 32.1 RDW 13.0 Plt Count 223 Sodium 141 Potassium 3.6 Chloride 109 H Carbon Dioxide 26 Anion Gap 10 L BUN 10 Creatinine 0.77 Estimated GFR > 60 Fasting Glucose 96 Estimat Average Glucose 108 Hemoglobin A1c % 5.4 Calcium 9.2 Total Bilirubin 0.9 AST 23 ALT 22 Alkaline Phosphatase 77 Total Protein 7.6 Albumin 4.5 Triglycerides 100 Cholesterol 249 H LDL Cholesterol, Calc 161 H HDL Cholesterol 68 25-OH Vitamin D Total 67.8 TSH 1.78 Free T4 1.01 Urine Color Yellow Urine Appearance Clear Urine pH 6.5 Ur Specific Hale 1.010 Urine Protein Negative Urine Glucose (UA) Negative Urine Ketones Negative Urine Blood Negative Urine Nitrite Positive H Ur Leukocyte Esterase Large (3+) H Urine RBC 0-2 Urine WBC 21-50 H Ur Squamous Epith Cells 3-5 Urine Bacteria 4+ Hyaline Casts 0-2 Coding Level of Care Code Est Pt Prev Care 40-64y(31847) Diagnoses Annual physical exam Z00.00 Chronic leukopenia D72.819 Vitamin D deficiency E55.9 Overweight (BMI 25.0-29.9) E66.3 Osteopenia of neck of femur, unspecified laterality M85.859 Laterality: unspecified laterality Acromegaly E22.0 Goiter E04.9 Pure hypercholesterolemia E78.00 Cardiac murmur R01.1 Benign essential hypertension I10 Additional Codes JOON-7 Assessment Billing - JOON-7 Assessment Tool: JOON-7 Assessment 67051 ([id number]) PHQ-9 - 73803 - PHQ-9 Billing: Yes ([id number]) Time Spent (min) 41 Assessment & Plan Assessment & Plan (1) Annual physical exam: Code(s): Z00.00 - Encounter for general adult medical examination without abnormal findings Category: Medical Plan: Reviewed preventive guidelines and recent labs with the patient. Colonoscopy done in November of 2023 scheduled to be repeated in 5 years. Pap smear scheduled for July 2025. Mammogram 02/2025. BMD test reordered. (2) Chronic leukopenia: Code(s): D72.819 - Decreased white blood cell count, unspecified Category: Medical Plan: This was worked up the past and found to be racial (3) Vitamin D deficiency: Code(s): E55.9 - Vitamin D deficiency, unspecified Category: Medical Plan: Continue Vitamin D3 2000 units QD (4) Overweight (BMI 25.0-29.9): Code(s): E66.3 - Overweight Category: Medical Plan: Reinforced diet/exercise as tolerated/lose weight (5) Osteopenia of neck of femur: Code(s): M85.859 - Other specified disorders of bone density and structure, unspecified thigh Category: Medical Qualifiers: Laterality: unspecified laterality Qualified Code(s): M85.859 - Other specified disorders of bone density and structure, unspecified thigh Plan: Repeat BMD done on 01/02/2022 revealed (+) 7.9% decline in BMD in the left femur compared to her previous BMD on 10/31/2019; AP spine BMD was mostly unchanged Will continue to monitor her BMD regularly every 2 to 3 years -DEXA scan ordered Patient is again encouraged to stay active and exercise regularly and continue taking her OTC Calcium and Vitamin D supplements daily (6) Acromegaly: Comment: (+) history of acromegaly, status post transsphenoidal resection. 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 Continued follow-up recommended She underwent FNA Bx back in May 2023 - pathology came back benign but she was advised by Dr. King at her last appointment with him to get a second opinion regarding this - she was referred to endocrinology in [place], [place] for a second opinion She was seen by Dr. Alatorre last April 2024 and underwent repeat US-guided Bx, which came back benign again She has been advised to just continue following up with Dr. King. Her next appointment is July, with Dr. King (8) Pure hypercholesterolemia: Code(s): E78.00 - Pure hypercholesterolemia, unspecified Category: Medical Plan: Triglycerides 100, total cholesterol 249, LDL 161, HDL 68 Cautioned the patient that her cholesterol it has increased significantly since last check Reports that she knows that it is the ice cream that she has been eating and she will cut this out Reinforced low-cholesterol diet and activity as tolerated. The patient we will still like to continue modifying diet and she is not currently interested in going on any medication for this. We will continue to monitor lipid (9) Cardiac murmur: Code(s): R01.1 - Cardiac murmur, unspecified Category: Medical Plan: This is most likely a flow murmur due to her thin body habitus and the proximity of her heart to her chest wall Echocardiogram done back in March 2023 came out completely normal, with no valvular abnormalities noted (10) Benign essential hypertension: Code(s): I10 - Essential (primary) hypertension Category: Medical Plan: Reinforced low-sodium diet - goal is systolic BP of 120 to 130 mm or less Her blood pressure currently appears much better controlled Continue Amlodipine 5 mg QD She is reminded to continue monitoring her BP regularly Plan Follow up in six-month Orders: Orders Complete Blood Count Auto Diff 6 Months E04.9 - Nontoxic goiter, unspecified, 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, E55.9 - Vitamin D deficiency, unspecified, E66.3 - Overweight, E78.00 - Pure hypercholesterolemia, unspecified, I10 - Essential (primary) hypertension, R01.1 - Cardiac murmur, unspecified Lipid Panel 6 Months E04.9 - Nontoxic goiter, unspecified, 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, E55.9 - Vitamin D deficiency, unspecified, E66.3 - Overweight, E78.00 - Pure hypercholesterolemia, unspecified, I10 - Essential (primary) hypertension, R01.1 - Cardiac murmur, unspecified UA CC w/rflx Micro + Cult 6 Months E04.9 - Nontoxic goiter, unspecified, 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, E55.9 - Vitamin D deficiency, unspecified, E66.3 - Overweight, E78.00 - Pure hypercholesterolemia, unspecified, I10 - Essential (primary) hypertension, R01.1 - Cardiac murmur, unspecified TSH reflex Free T4 6 Months E04.9 - Nontoxic goiter, unspecified, 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, E55.9 - Vitamin D deficiency, unspecified, E66.3 - Overweight, E78.00 - Pure hypercholesterolemia, unspecified, I10 - Essential (primary) hypertension, R01.1 - Cardiac murmur, unspecified Hemoglobin A1c 6 Months E04.9 - Nontoxic goiter, unspecified, 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
[2025-05-11 08:28] VITALS: BP 124/68; PULSE 83; O2SAT 98; BMI 26.8
--- OUTSIDE RECORDS SUMMARY | 2025-05-11 08:32 | XMS_ITS | Clinical Summary ---
Author Organization [facility] Address [address] [place] [address] Care Team Providers Care Medical Customer Service Representative Name Role Phone Timbo Cardona MD Primary Care Provider +1- [phone] Medications Medication Sig Dispensed Refills Start Date [...] (1 of 2) 2018 Influenza Vaccine (#1) 2025 Pneumococcal Vaccine Aged Out No long er eligible based on patient's age to complete this topic RSV Ped < 20 months Aged Out No longe r eligible based on patient's age to complete this topic Care Teams Medical Customer Service Representative Relationship Specialty Start Date End Date Timbo Cardona MD [address] [place] [address] [place] [address] PCP - General Internal Medicine 08/12/23
--- OUTSIDE RECORDS SUMMARY | 2025-05-11 08:32 | XMS_ITS | Clinical Summary ---
Author Organization [facility] Address [address] [place] [address] Care Team Providers Care Geosciences Professor Name Role Phone Timbo Cardona MD Primary Care Provider + [phone] Social History Tobacco Use Types Packs/Day Years [...] age to complete this topic Care Teams Geosciences Professor Relationship Specialty Start Date End Date Timbo Cardona MD [address] [place] [address] Dr [address] [place] PCP - General 08/12/23
== END 2025-05-11 09:07 | disposition home or self-care (01) ==
LOC: HO.HMCH 08:24
PROVIDERS: PCP Internal Medicine
DX: Z00.00 Encounter for general adult medical examination without abnormal findings (principal); E22.0 Acromegaly and pituitary gigantism; E66.3 Overweight; Z68.26 Body mass index [BMI] 26.0-26.9, adult; D72.819 Decreased white blood cell count, unspecified; E55.9 Vitamin D deficiency, unspecified; M85.859 Other specified disorders of bone density and structure, unspecified thigh; E04.9 Nontoxic goiter, unspecified; E78.00 Pure hypercholesterolemia, unspecified; R01.1 Cardiac murmur, unspecified; I10 Essential (primary) hypertension

== ENCOUNTER → 2025-05-11 08:24 | Outpatient (BNVA) | payer BC, SELFPAY | PROVIDERS: PCP Internal Medicine | DX: Z00.00 Encounter for general adult medical examination without abnormal findings (principal); E78.5 Hyperlipidemia, unspecified; D72.819 Decreased white blood cell count, unspecified; E55.9 Vitamin D deficiency, unspecified; E66.3 Overweight; M85.859 Other specified disorders of bone density and structure, unspecified thigh; E22.0 Acromegaly and pituitary gigantism; E04.9 Nontoxic goiter, unspecified; E78.00 Pure hypercholesterolemia, unspecified; R01.1 Cardiac murmur, unspecified; I10 Essential (primary) hypertension; Z68.26 Body mass index [BMI] 26.0-26.9, adult | CPT/HCPCS: 96127 ==

== ENCOUNTER → 2025-05-29 08:15 | Outpatient (BNV) | payer BC, SELFPAY | PROVIDERS: Visit Provider Radiology Diagnostic Radiology | DX: E28.39 Other primary ovarian failure (principal) | CPT/HCPCS: 77080 ==

== ENCOUNTER 2025-05-29 08:17 | Outpatient (REF) | payer BC, SELFPAY ==
--- NOTE | ~2025-05-29 | MM_ITS ---
EXAMINATION: DXA BONE DENSITY AXIAL HISTORY: M85.859 - Other specified disorders of bone density and structure, unspecified... TECHNIQUE: Lineagen Dual energy absorptiometry (DEXA) of the lumbar spine, total left hip, and femoral neck was performed. COMPARISON: Comparison is made with the prior examination dated 01/02/2022. FINDINGS: The bone mineral density of the lumbar spine is 1.180 g/cm2, corresponding to a T-score of 0.0, and a Z-score of -0.1. This is indicative of normal bone mineral density. This represents a BMD change of 1.1% compared to the prior exam. This is not statistically significant. The bone mineral density of the left total hip is 0.821 g/cm2, corresponding to a T-score of -1.5, and a Z-score of -2.0. This is indicative of osteopenia. This represents a BMD change of 3.7% compared to the prior exam. This is not statistically significant. The bone mineral density of the left femoral neck is 0.872 g/cm2, corresponding to a T-score of -1.2, and a Z-score of -1.3. This is indicative of osteopenia. This represents a BMD change of 3.6% compared to the prior exam. FRACTURE RISK: The FRAX index suggests a ten year probability of major osteoporotic fracture of 2.9%, and of hip fracture 0.2%. MM/XR DEXA axial skeleton IMPRESSION: Based on bone mineral density, and according to World Health Organization (WHO) criteria, the diagnosis is consistent with osteopenia. Statistically, 68% of repeat scans fall within 1 SD (+/- 0.010 g/cm2 for AP spine L1-L4) and 1 SD (+/- 0.012 g/cm2 for femur total) FRAX is a trademark of the [employer]'s [place] [facility] Metabolic Bone Disease, a World Health Organization (WHO) Collaborating Center. Electronically signed by: Jim Johnston MD 05/29/2025 08:52 AM EDT
--- OUTSIDE RECORDS SUMMARY | 2025-05-29 08:26 | XMS_ITS | Clinical Summary ---
Author Organization [facility] Address [address] [place] [address] Care Team Providers Care Oil Fire Specialist Name Role Phone Timbo Cardona MD Primary Care Provider [phone] Medications Medication Sig Dispensed Refills Start Date [...] age to complete this topic Care Teams Oil Fire Specialist Relationship Specialty Start Date End Date Timbo Cardona MD [address] [place] [address] [place] [id number] PCP - General Internal Medicine 08/12/23
--- OUTSIDE RECORDS SUMMARY | 2025-05-29 08:27 | XMS_ITS | Clinical Summary ---
Author Organization [facility] Address [address] [place] [address] Care Team Providers Care Floor Sander Name Role Phone Timbo Cardona MD Primary Care Provider + [phone] Social History Tobacco Use Types Packs/Day Years [...] age to complete this topic Care Teams Floor Sander Relationship Specialty Start Date End Date Timbo Cardona MD [address] [place] [address] Dr [address] [facility] [place] PCP - General 08/12/23
== END 2025-05-29 08:18 | disposition home or self-care (01) ==
LOC: HO.MAMMO 08:17
DX: Z13.820 Encounter for screening for osteoporosis (principal); M85.89 Other specified disorders of bone density and structure, multiple sites
CPT/HCPCS: 77080

== ENCOUNTER 2025-06-04 07:03 | Outpatient (AMB) | payer BC, SELFPAY ==
--- OUTSIDE RECORDS SUMMARY | 2025-06-04 07:05 | XMS_ITS | Clinical Summary ---
Author Organization [facility] Address [address] [place] [address] Care Team Providers Care Literacy Consultant Name Role Phone Timbo Cardona MD Primary Care Provider [phone] Medications Medication Sig Dispensed Refills Start Date [...] age to complete this topic Care Teams Literacy Consultant Relationship Specialty Start Date End Date Timbo Cardona MD [address] [place] [address] [place] [address] PCP - General Internal Medicine 08/12/23
--- OUTSIDE RECORDS SUMMARY | 2025-06-04 07:05 | XMS_ITS | Clinical Summary ---
Author Organization [employer] [facility] Address [address] [place] [address] Care Team Providers Care Mail Carrier Technician Name Role Phone Timbo Cardona MD Primary Care Provider + [phone] Social History Tobacco Use Types Packs/Day Years [...] age to complete this topic Care Teams Mail Carrier Technician Relationship Specialty Start Date End Date Timbo Cardona MD [address] [place] [address] Dr [address] [place] PCP - General 08/12/23
[2025-06-04 07:15] VITALS: BP 136/80; PULSE 86; O2SAT 98; BMI 26.8
--- NOTE | 2025-06-04 07:15 | AM.OFFWIN_ITS ---
Intake Vital Signs 06/04/25 07:15 Height 5 ft 7 in Weight 171 lb BMI 26.8 BP 136/80 Blood Pressure Location Lt brachial Position Sitting Pulse 86 Pulse Source Pulse Oximeter Pulse Oximetry (%) 98 Oxygen Delivery Method Room Air Intake Visit Reasons: EP-?uti Intake Note: pt presents unresolved with low back pain, frequent urination- was recently on abx for UTI Patient Tobacco Use Status: Never used Tobacco Allergies Sulfa (Sulfonamide Antibiotics) (SULFA (SULFONAMIDE ANTIBIOTICS)) Allergy (Unknown, Verified 06/04/25 07:22) RASH Do you need a note to return to daycare/school/sports/work: No HPI HPI Comments History of Present Illness Details History - The patient is a 55-year-old female pr esenting with suspected Urinary Tract Infection (UTI). - She has a history of recurrent UTIs, p reviously occurring every three months, but had a significant reduction in frequency after starting estrogen therapy a year ago. - Recently, she experienced a UTI for wh ich prescribed medication was ineffective, and she currently reports low back pain, urinary urgency, and frequency. - A previous urine culture was allya ana. - She denies vaginal discharge or bleedi ng. - She denies fever, chills, CP, SOB, or abd pain. Physical Exam General: Cooperative, healthy appearing, comfortable, no acute distress and well developed Cardiac: Normal S1 and S2. RRR, no M/R/G noted. Respiratory: Normal respiratory effort and able to speak in complete sentences. Clear to auscultation bilaterally. No w/r/r noted. Skin: No rashes or lesions noted. GI: Normal inspection. Normal BS noted. Soft, non-tender, non-distended. No TTP of all 4 quadrants. No guarding or rebound tenderness noted. Back: Negative CVA bilaterally, but reports low back pain. Patient was informed and verbally consented to the use of an ambient scribe for clinic note documentation during this visit. [facility] Medical History Overweight (BMI 25.0-29.9) 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 Acromegaly Vitamin D deficiency Goiter Pure hypercholesterolemia Benign essential hypertension Surgical History Hx of colonoscopy (~03/28/18) Hx of dilation and curettage (~2017) History of tubal ligation History of brain surgery (~2004) Family History Father Renal failure Hypertension Mother Hypertension Social History Housing: House Alcohol intake: never Patient Tobacco Use Status: Never used Tobacco e-Cigarette/Vaping Use: Never Used Second Hand Smoke Exposure: Yes service: No Current occupational status: employed Cognitive needs: No Hearing needs: No Vision needs: Yes (glasses) Female Reproductive History Menstrual Age of Menarche: 11 Review of Systems Const All systems reviewed & are unremarkable except as noted in HPI and below Physical Exam Vital Signs: Last Vital Signs Pulse 86 06/04/25 07:15 BP 136/80 06/04/25 07:15 Pulse Ox 98 06/04/25 07:15 Oxygen Delivery Method Room Air 06/04/25 07:15 BMI result Body Mass Index 26.8 Assessment & Plan Assessment & Plan (1) Dysuria: Code(s): R30.0 - Dysuria Plan Most likely UTI UA in the office 2+ leuko plan - Will send a urine culture will be conducted to guide antibiotic selection. - A different antibiotic will be prescribed due to previous treatment ineffectiveness and potential resistance. -continue with estrogen from the urologist - f/u with urologist -f/u with PCP Orders: Orders Urine Culture Today N39.0 - Urinary tract infection, site not specified Medications: New cefuroxime axetil 500 mg PO Q12H 10 tabs 0RF Coding Level of Care Code Est Pt Level 3 (48735) Diagnoses Dysuria R30.0
== END 2025-06-04 08:18 | disposition home or self-care (01) ==
PROVIDERS: PCP Internal Medicine; Visit Provider Physician Assistant Medical
DX: Z13.9 Encounter for screening, unspecified (principal); R30.0 Dysuria

== ENCOUNTER 2025-06-04 07:03 | Outpatient (REF) | payer BC, SELFPAY | END 2025-06-04 07:04 | disposition home or self-care (01) | LOC: HO.LNP 07:03 | PROVIDERS: PCP Internal Medicine; Visit Provider Physician Assistant Medical | DX: N39.0 Urinary tract infection, site not specified (principal); R30.0 Dysuria | CPT/HCPCS: 81003; 87086; 87088; 87186 ==

== ENCOUNTER 2025-07-26 07:57 | Outpatient (AMB) | payer BC, SELFPAY ==
--- NOTE | 2025-07-26 08:00 | MHC.OFFVIS ---
Vital Signs 07/26/25 08:01 Height 5 ft 7 in Weight 175 lb 0.752 oz BMI 27.4 BP 128/86 Blood Pressure Location Rt brachial Position Sitting Pulse 85 Pulse Source Pulse Oximeter Pulse Oximetry (%) 98 Oxygen Delivery Method Room Air Intake Visit Reasons: NMG f/u Intake Note: Patient present today for NMG follow up. Crew Member Required: No Accompanied by: Self / Same As Patient Allergies Sulfa (Sulfonamide Antibiotics) (SULFA (SULFONAMIDE ANTIBIOTICS)) Allergy (Unknown, Verified 07/26/25 08:06) RASH Medication List - Last Reconciled 07/26/25 by Jim King MD amlodipine 5 mg PO DAILY 90 days cefuroxime axetil 500 mg PO Q12H cholecalciferol (vitamin D3) 25 mcg PO DAILY minoxidil 1.25 mg PO DAILY HPI Comments Details: This is a 55-year-old black female followed by myself previously for acromegaly status post transsphenoidal resection with persistent slightly elevated IGF-1 level but normal growth a month suppression test. She also has a goiter underwent left lobectomy. Right lobe had thyroid nodules well. She is status post FNA with cytology She is s/p FNA of right thyroid nodule by Dr. Alatorre at [facility] in 04/2024. She denies any obstructive symptoms. Pt states biopsy was benign No acromegaic sx. [facility], [facility] Medical History Overweight (BMI 25.0-29.9) 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 Acromegaly Vitamin D deficiency Goiter Pure hypercholesterolemia Benign essential hypertension Surgical History Hx of colonoscopy (~03/28/18) Hx of dilation and curettage (~2017) History of tubal ligation History of brain surgery (~2004) Family History Father Renal failure Hypertension Mother Hypertension Social History Housing: House Alcohol intake: never Patient Tobacco Use Status: Never used Tobacco e-Cigarette/Vaping Use: Never Used Second Hand Smoke Exposure: Yes service: No Current occupational status: employed Cognitive needs: No Hearing needs: No Vision needs: Yes (glasses) Female Reproductive History Menstrual Age of Menarche: 11 Physical Exam Vital Signs: BMI result Body Mass Index 27.4 Const Other: Acromegalic features present. There is a scar status post left lobectomy. Right lobe is without the presence of any palpable Assessment & Plan Assessment & Plan (1) Acromegaly: Comment: (+) history of acromegaly, status post transsphenoidal resection. 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 she has had previously normal IGF-1 levels including 1 this year We will continue to observe (2) Goiter: Comment: S/P left thyroid lobectomy on 06/28/2017 Code(s): E04.9 - Nontoxic goiter, unspecified Category: Medical Plan: Status post FNA of right upper and midpole nodule with midpole nodule being benign and right upper pole nodule being non diagnostic. she underwent a repeat FNA by Dr. Alatorre at [facility] noted to be benign. Appears clinically and biochemically euthyroid . . Will have patient follow up with Dr. Strange here for the multinodular goiter who is expert in thyroid ultrasound in the next several months Coding Level of Care Code Est Pt Level 3 (21567) Diagnoses Acromegaly E22.0 Goiter E04.9
[2025-07-26 08:01] VITALS: BP 128/86; PULSE 85; O2SAT 98; BMI 27.4
== END 2025-07-26 08:15 | disposition home or self-care (01) ==
LOC: HO.ENCR 07:58
PROVIDERS: PCP Internal Medicine; Visit Provider Internal Medicine Endocrinology, Diabetes & Metabolism
DX: E22.0 Acromegaly and pituitary gigantism (principal); E04.9 Nontoxic goiter, unspecified
CPT/HCPCS: 99213